=== PATIENT | female | born 1945 | race Caucasian/White ===

== ENCOUNTER 2023-01-28 08:30 | Emergency (ER) | payer MEDICARE, OTHER, MEDICAID, SELFPAY ==
--- NOTE | ~2023-01-28 | XR_ITS ---
EXAMINATION: XR CHEST CLINICAL INFORMATION: SOB COMPARISON: None available. TECHNIQUE: Frontal view of the chest was obtained. Patient is rotated to the left FINDINGS: The lungs are somewhat expanded with left lower lobe lateral CP angle opacity question loculated effusion/infiltrate/atelectasis. Heart size is normal. There is increased pulmonary vascularity suggestive of CHF. No visible bony abnormality seen. XR/XR chest 1V IMPRESSION: 1. Left lower lobe lateral CP angle opacity question loculated effusion/atelectasis/infiltrate. 2. Suspect mild CHF.
--- NOTE | ~2023-01-28 | CT_ITS ---
EXAMINATION: CT HEAD WITHOUT CONTRAST CLINICAL INFORMATION: Mental status change COMPARISON: None available. TECHNIQUE: Contiguous axial imaging was performed from the skull base to vertex without intravenous administration of contrast. This CT examination was performed using dose optimization techniques as appropriate, variously including the following: *Automated exposure control *Adjustment of mA and/or kV according to patient size (this includes techniques or standardized protocols for targeted exams where dose is matched to indication/reason for exam; i.e. extremities or head) *Use of iterative reconstruction technique DLP: 592 mGy-cm FINDINGS: No intracranial hemorrhage is identified. No significant mass effect or midline structure shift is seen. No abnormal extra-axial fluid collection is seen. There is prominence of ventricles, sulci, and cisterns. There is some mild periventricular white matter low density present. About the lower right frontal region, inferior gyrus, there is a 1.6 x 1.0 x 1.4 cm low-density region with a 5 mm bony defect seen about the right superior orbit. This has the appearance of encephalomalacia and may be posttraumatic in nature or possibly related to infarct. The bony defect may be posttraumatic or related to another process and MRI of the orbits would be of help in further evaluation of this finding. There is material within the right external auditory canal without evidence of erosion of the scutum and therefore not likely cholesteatoma. It does however have density measurements greater than cerumen would be expected to this may be related to impacted material. Pterygoid plates intact. No acute skull fracture is appreciated. There is opacification of the left mastoid sinus with a prominent inferior left turbinate. There is opacification of some right mastoid air cells. CT/CT head/brain wo IV con IMPRESSION: Generalized atrophic change. Region of encephalomalacia about the right inferior gyrus which is directly adjacent to a defect within the orbital roof. This may be posttraumatic in nature however lesion of other etiology cannot be excluded and MRI some of the orbits and IACs is recommended. There is no previous imaging of these regions at this institution.
[2023-01-28 08:39] VITALS: BP 112/55; PULSE 50; O2SAT 100
[2023-01-28 08:41] VITALS: BP 122/47; PULSE 53; RESP 20; TEMP 36.4; O2SAT 100; BMI 23.5
--- NOTE | 2023-01-28 08:43 | ED.AMS ---
HPI - Altered Mental Status General Chief Complaint: Altered Mental Status Stated Complaint: From SNF, AMS, responsive to pain only per EMS Time Seen by Provider: 01/28/23 08:36 Source: EMS Mode of arrival: EMS Limitations: altered mental status History of Present Illness HPI narrative: This 77 yo female from [place] sent for eval because more lethargic. 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 No reported fever/vomiting/diarrhea last dyalisis Yesterday complaint: altered mental status Onset (ago): unknown Severity: moderate Consistency of symptoms: waxing and waning Context: COPD and other (CRF) Related Data Allergies Allergy/AdvReac Type Severity Reaction Status Date / Time haloperidol [From Haldol] Allergy Unknown Verified 01/28/23 08:43 lithium Allergy Unknown Verified 01/28/23 08:43 Review of Systems Review of Systems: Yes Unobtainable due to mental status PMFSH Social History Social History Advance Directives: No Physical Exam ED Vital Signs: Vital Signs - 24 hr 01/28/23 08:41 01/28/23 12:00 Temperature 97.5 F 98.0 F Pulse Rate 53 50 Respiratory Rate 20 12 Blood Pressure 122/47 L 112/41 L Pulse Oximetry 100 97 Oxygen Delivery Method Nasal Cannula Nasal Cannula Oxygen Flow Rate 3 BMI result Body Mass Index 23.5 Const General: cooperative, no acute distress and well developed Nutritional Appearance: well nourished Orientation/consciousness: patient oriented x3 HENMT Head: Yes normal to inspection Face and sinus: Yes normal facial exam Mouth: Normal oral and palatal mucosa present Throat: Yes posterior oropharynx normal Neck Neck: Yes normal visual inspection Chest Chest palpation & inspection: normal inspection of the chest Resp Effort & Inspection: normal respiratory effort Cardio Jugular venous distension: no JVD Rate: regular rate Rhythm: regular rhythm GI Inspection: Yes normal to inspection Palpation (GI): Soft to palpation, not firm, nontender and no guarding Percussion: Yes normal to percussion Skin General skin exam: no rashes or lesions noted, elasticity normal and turgor normal Neuro General: patient oriented x3 Cranial nerves: Yes CN's II-XII intact bilaterally Extrem Other: legs edema bilaterally Course Course Course Narrative: Patient remains stable in the emergency department she was awake alert oriented, she ate lunch vital sign was stable Reevaluation(s) Reevaluation #1: eating lunch,delta tropi flat VSS Time: 14:18 Medications Administered Discontinued Medications Generic Name Dose Route Start Last Admin Trade Name Tc PRN Reason Stop Dose Admin Furosemide 60 mg 01/28/23 14:39 01/28/23 14:53 Furosemide 40 Mg Tablet PO 01/28/23 14:40 60 mg ONCE ONE Administration Protocol Medical Decision Making Medical Decision Making MDM Narrative: Presented with mental status changes from [place] will get lab/UA/EKG head ct Differential Diagnosis Differential Diagnoses: The differential diagnosis associated with the presentation includes hyponatremia/hypernatremia/CVA/UTI Admission/Observation Consideration of admission/observation: Escalation of care including admission/observation considered Lab Data [facility] Lab Attestation statement: I reviewed the patient's lab results. 01/28/23 09:22 01/28/23 09:22 Labs: Lab Results 01/28/23 01/28/23 01/28/23 Range/Units 09:22 09:22 09:22 WBC 4.5 L (4.8-10.8) X10*3/uL RBC 2.84 L (4.20-5.50) X10*6/uL Hgb 8.4 L (12.0-16.0) g/dl Hct 28.3 L (37.0-47.0) % MCV 99.6 H (80.0-98.0) fL MCH 29.6 (27.0-33.0) pg MCHC 29.7 L (31.0-35.0) g/dl RDW 15.8 (11.0-16.0) % Plt Count 131 L (160-400) X10*3/uL MPV 11.5 (9.4-12.3) fL Immature Gran % (Auto) 0.4 (0.0-0.4) % Neut % (Auto) 67.2 (45-73) % Lymph % (Auto) 18.1 L (20-40) % [place] % (Auto) 12.6 H (2-11) % Eos % (Auto) 1.5 (0-4) % Baso % (Auto) 0.2 (0-2) % Lymph # (Auto) 0.8 L (1.2-4.9) X10*3/uL [place] # (Auto) 0.6 (0.1-1.2) X10*3/uL Eos # (Auto) 0.1 (0.0-0.4) X10*3/uL Baso # (Auto) 0.0 (0.0-0.2) X10*3/uL Abs Immat Gran (auto) 0.02 (0.00-0.03) X10*3/uL Absolute Neuts (auto) 3.1 (2.0-8.3) x10*3/uL Absolute Nucleated RBC 0.000 (0.0-0.012) X10*3/uL Nucleated RBC % (auto) 0.0 (0.0-0.2) /100WBC O2 Saturation % ABG pH at Pt Temp (7.35-7.45) ABG pCO2 at Pt Temp (32-45) mmHg ABG pO2 at Pt Temp (83-108) mmHg ABG HCO3 (22-26) mmol/L ABG Base Excess (Actual) mmol/L Sodium 141 (135-145) mmol/L Potassium 4.7 (3.3-5.1) mmol/L Chloride 104 (96-108) mmol/L Carbon Dioxide 30 H (22-29) mmol/L Anion Gap 12 (12-20) BUN 25 H (9-16) mg/dL Creatinine 3.05 H (0.5-1.4) mg/dL Estim Creat Clear Calc 11.6 Estimated GFR 15 Random Glucose 76 (60-115) mg/dL Calcium 8.8 (8.4-10.2) mg/dL Total Bilirubin 0.4 (0.0-1.0) mg/dL AST 20 (5-31) U/L ALT 12 (0-31) U/L Alkaline Phosphatase 89 (39-117) U/L Troponin I High Sens 28.1 H (<3.5-17.0) ng/L Total Protein 5.7 L (6.5-8.0) g/dL Albumin 3.5 (3.5-5.0) g/dL Urine Color Urine Appearance Urine pH (5.0-9.0) Ur Specific [place] (1.005-1.025) Urine Protein (Neg-Trace) mg/dL Urine Glucose (UA) (Negative) mg/dL Urine Ketones (Negative) mg/dL Urine Blood (Negative) Urine Nitrite (Negative) Ur Leukocyte Esterase (Negative) Urine RBC (0-2) /HPF Urine WBC (0-5) /HPF Ur Squamous Epith Cells (0-2) /HPF Urine Bacteria (None Seen) Hyaline Casts (0-2) /LPF 01/28/23 01/28/23 01/28/23 Range/Units 10:03 10:53 13:24 WBC (4.8-10.8) X10*3/uL RBC (4.20-5.50) X10*6/uL Hgb (12.0-16.0) g/dl Hct (37.0-47.0) % MCV (80.0-98.0) fL MCH (27.0-33.0) pg MCHC (31.0-35.0) g/dl RDW (11.0-16.0) % Plt Count (160-400) X10*3/uL MPV (9.4-12.3) fL Immature Gran % (Auto) (0.0-0.4) % Neut % (Auto) (45-73) % Lymph % (Auto) (20-40) % [place] % (Auto) (2-11) % Eos % (Auto) (0-4) % Baso % (Auto) (0-2) % Lymph # (Auto) (1.2-4.9) X10*3/uL [place] # (Auto) (0.1-1.2) X10*3/uL Eos # (Auto) (0.0-0.4) X10*3/uL Baso # (Auto) (0.0-0.2) X10*3/uL Abs Immat Gran (auto) (0.00-0.03) X10*3/uL Absolute Neuts (auto) (2.0-8.3) x10*3/uL Absolute Nucleated RBC (0.0-0.012) X10*3/uL Nucleated RBC % (auto) (0.0-0.2) /100WBC O2 Saturation 100.0 % ABG pH at Pt Temp 7.34 L (7.35-7.45) ABG pCO2 at Pt Temp 55 H (32-45) mmHg ABG pO2 at Pt Temp 126 H (83-108) mmHg ABG HCO3 30 H (22-26) mmol/L ABG Base Excess (Actual) 3.9 mmol/L Sodium (135-145) mmol/L Potassium (3.3-5.1) mmol/L Chloride (96-108) mmol/L Carbon Dioxide (22-29) mmol/L Anion Gap (12-20) BUN (9-16) mg/dL Creatinine (0.5-1.4) mg/dL Estim Creat Clear Calc Estimated GFR Random Glucose (60-115) mg/dL Calcium (8.4-10.2) mg/dL Total Bilirubin (0.0-1.0) mg/dL AST (5-31) U/L ALT (0-31) U/L Alkaline Phosphatase (39-117) U/L Troponin I High Sens 22.0 H (<3.5-17.0) ng/L Total Protein (6.5-8.0) g/dL Albumin (3.5-5.0) g/dL Urine Color Yellow Urine Appearance Clear Urine pH 8.5 (5.0-9.0) Ur Specific [place] <= 1.005 (1.005-1.025) Urine Protein 30 (1+) H (Neg-Trace) mg/dL Urine Glucose (UA) Negative (Negative) mg/dL Urine Ketones Negative (Negative) mg/dL Urine Blood Negative (Negative) Urine Nitrite Negative (Negative) Ur Leukocyte Esterase Negative (Negative) Urine RBC 0-2 (0-2) /HPF Urine WBC 0-5 (0-5) /HPF Ur Squamous Epith Cells 0-2 (0-2) /HPF Urine Bacteria None Seen (None Seen) Hyaline Casts 0-2 (0-2) /LPF Independent Interpretation I performed an independent interpretation of an: EKG Radiology Impression Discussion of test interpretation with radiology: I have reviewed the radiologist's reading. Independent Historian is finding. There is material within the right external auditory canal without evidence of erosion of the scutum and therefore not likely cholesteatoma. It does however have density measurements greater than cerumen would be expected to this may be related to impacted material. Pterygoid plates intact. No acute skull fracture is appreciated. There is opacification of the left mastoid sinus with a prominent inferior left turbinate. There is opacification of some right mastoid air cells. ? CT/CT head/brain wo IV con IMPRESSION: Generalized atrophic change. ? Region of encephalomalacia about the right inferior gyrus which is directly adjacent to a defect within the orbital roof. This may be posttraumatic in nature however lesion of other etiology cannot be excluded and MRI some of the orbits and IACs is recommended. There is no previous imaging of these regions at this institution. Dictated By: Rafael Fonseca MD Signed By: <Electronically si External Record Review External record reviewed: Other ([facility] record) Discharge Plan Discharge Clinical Impression: Altered mental status, Chronic renal failure syndrome Patient Disposition: Xfer SNF Instructions: Altered Mental Status (ED)
--- NOTE | 2023-01-28 08:48 | ECG_ITS ---
Test Reason : AMS Blood Pressure : / mmHG Vent. Rate : 053 BPM Atrial Rate : 053 BPM P-R Int : 154 ms QRS Dur : 082 ms QT Int : 424 ms P-R-T Axes : 066 006 056 degrees QTc Int : 397 ms Sinus bradycardia Otherwise normal ECG No previous ECGs available Referred By: Delta Noyola Electronically Signed By:JOHN FLANAGAN MD
[2023-01-28 08:58] VITALS: O2SAT 94
[2023-01-28 09:26] LABS: MANUAL DIFF FLAG NO
[2023-01-28 09:29] LABS: Basophils Percent Auto 0.2 % (0-2); Eosinophils Absolute Auto 0.1 X10*3/uL (0.0-0.4); Eosinophils Percent Auto 1.5 % (0-4); Hematocrit 28.3 % (37.0-47.0); Hemoglobin 8.4 g/dl (12.0-16.0); Imm Gran Abs Auto 0.02 X10*3/uL (0.00-0.03); Imm Gran Pct Auto 0.4 % (0.0-0.4); Lymphocytes Absolute Auto 0.8 X10*3/uL (1.2-4.9); Lymphocytes Percent Auto 18.1 % (20-40); Mean Corpuscular HGB Conc 29.7 g/dl (31.0-35.0); Mean Corpuscular Hemoglobin 29.6 pg (27.0-33.0); Mean Corpuscular Volume 99.6 fL (80.0-98.0); Mean Platelet Volume 11.5 fL (9.4-12.3); Monocytes Absolute Auto 0.6 X10*3/uL (0.1-1.2); Monocytes Percent Auto 12.6 % (2-11); Neutrophils Absolute Auto 3.1 x10*3/uL (2.0-8.3); Neutrophils Percent Auto 67.2 % (45-73); Platelet Count 131 X10*3/uL (160-400); Red Blood Count 2.84 X10*6/uL (4.20-5.50); Red Cell Distribution Width 15.8 % (11.0-16.0); White Blood Count 4.5 X10*3/uL (4.8-10.8)
[2023-01-28 09:48] LABS: Alanine Aminotransferase 12 U/L (0-31); Albumin Level 3.5 g/dL (3.5-5.0); Alkaline Phosphatase 89 U/L (39-117); Anion Gap 12 (12-20); Aspartate Amino Transferase 20 U/L (5-31); Bilirubin Total 0.4 mg/dL (0.0-1.0); Blood Urea Nitrogen 25 mg/dL (9-16); Calcium 8.8 mg/dL (8.4-10.2); Carbon Dioxide 30 mmol/L (22-29); Chloride 104 mmol/L (96-108); Creatinine Clr Calc Pharmacy 11.6; Estimated Glomerular Filt Rate 15; Glucose Random 76 mg/dL (60-115); Potassium 4.7 mmol/L (3.3-5.1); Sodium 141 mmol/L (135-145); Total Protein 5.7 g/dL (6.5-8.0)
[2023-01-28 09:56] LABS: Troponin-I High Sensitivity 28.1 ng/L (<3.5-17.0)
[2023-01-28 10:11] LABS: ABG Base Excess 3.9 mmol/L; ABG HCO3 30 mmol/L (22-26); ABG pCO2 55 mmHg (32-45); ABG pH 7.34 (7.35-7.45); ABG pO2 126 mmHg (83-108)
[2023-01-28 10:47] LABS: ABG Refer to POC result
[2023-01-28 11:10] LABS: Color Urine Yellow; Glucose Urine UA Negative (Negative); Leukocyte Esterase Urine Negative (Negative); Nitrite Urine Negative (Negative); PH 8.5 (5.0-9.0); Specific Gravity - Urine <= 1.005 (1.005-1.025); UMIC TRIGGER UACC YES; Urine Blood Negative (Negative); Urine Ketones Negative (Negative); Urine Protein 30 (1+) mg/dL (Neg-Trace)
[2023-01-28 11:11] LABS: Appearance Urine Clear
[2023-01-28 11:12] LABS: Bacteria Urine None Seen (None Seen); Hyaline Casts Urine 0-2 /LPF (0-2); RBC Urine 0-2 /HPF (0-2); Squamous Epithelial Cell Urine 0-2 /HPF (0-2); WBC Urine 0-5 /HPF (0-5)
[2023-01-28 12:00] VITALS: BP 112/41; PULSE 50; RESP 12; TEMP 36.7; O2SAT 97
[2023-01-28] MEDS: Furosemide 40 MG TABLET 60 MG PO (14:53)
[2023-01-28 19:14] VITALS: BP 108/59; PULSE 81; RESP 17; O2SAT 97
== END 2023-01-28 19:15 | disposition skilled nursing facility (03) ==
PROVIDERS: Emergency Provider Emergency Medicine; PCP Internal Medicine
DX: R41.82 Altered mental status, unspecified (principal); N18.6 End stage renal disease; Z99.2 Dependence on renal dialysis
CPT/HCPCS: 36415; 70450; 71045; 80053; 81001; 82803; 84484; 85025; 93005; 96374; 99284

== ENCOUNTER 2023-04-05 10:04 | Inpatient (IN) | payer MEDICARE, OTHER, MEDICAID, SELFPAY ==
[2023-04-05] VITALS (26 sets, daily range): BP systolic 64–180; BP diastolic 32–91; PULSE 40–97; RESP 11–27; TEMP 34.7–36.1; O2SAT 90–100; BMI 25.8
--- NOTE | ~2023-04-05 | XR_ITS ---
EXAMINATION: XR CHEST CLINICAL INFORMATION: Status post central line COMPARISON: AP semierect portable chest earlier today TECHNIQUE: AP portable upright view of the chest was obtained. 1330 hours FINDINGS: Interval placement of a right IJ central line with the tip in the right atrium. No pneumothorax. No other significant interval change.. The left upper lobe, now visualized, is clear. XR/XR chest 1V IMPRESSION: Interval placement of a right central line with the tip in the right atrium.
--- NOTE | ~2023-04-05 | CT_ITS ---
EXAMINATION: CT HEAD WITHOUT CONTRAST CLINICAL INFORMATION: Acute mental status change COMPARISON: Previous head CT January 2023 TECHNIQUE: Contiguous axial imaging was performed from the skull base to vertex without intravenous administration of contrast. This CT examination was performed using dose optimization techniques as appropriate, variously including the following: *Automated exposure control *Adjustment of mA and/or kV according to patient size (this includes techniques or standardized protocols for targeted exams where dose is matched to indication/reason for exam; i.e. extremities or head) *Use of iterative reconstruction technique DLP: 675 mGy-cm FINDINGS: There is no evidence of an extra-axial collection. There is no evidence of intra-axial or extra-axial hemorrhage. The ventricles and extra-axial CSF spaces are prominent suggestive of generalized atrophy. There is decreased attenuation suggestive of gliosis or encephalomalacia seen in the inferior right frontal lobe. This is adjacent to bony defect in the roof of the right orbit. This appears unchanged from previous exam January 2023. No mass, mass effect or acute infarct. Rosario-white matter differentiation is normal. Soft tissue opacification of the right mastoid air cells, stable. Soft tissue opacification of the left maxillary sinus and ostiomeatal complex. This appears increased from previous exam. CT/CT head/brain wo IV con IMPRESSION: No acute intracranial findings. Generalized atrophy. Encephalomalacia in the inferior right frontal lobe and adjacent bone defect in the superior right orbit. Appearance is unchanged from January 2023. Post traumatic change should be considered. Infectious or inflammatory or neoplastic process cannot be excluded and clinical correlation recommended. This again could be better evaluated with MR of the orbits. Worsening left maxillary sinus disease. Stable opacification of the right mastoid air cells.
--- NOTE | ~2023-04-05 | CT_ITS ---
EXAMINATION: CT CHEST, ABDOMEN AND PELVIS WITH CONTRAST CLINICAL INFORMATION: sepsis unclear etiology COMPARISON: Chest radiograph earlier today TECHNIQUE: Multidetector volumetric imaging was performed from the thoracic inlet through the pubic symphysis following administration of 85 mL Omnipaque 350. Sagittal and coronal reformatted images were obtained on the technologist's workstation. This CT examination was performed using dose optimization techniques as appropriate, variously including the following: *Automated exposure control *Adjustment of mA and/or kV according to patient size (this includes techniques or standardized protocols for targeted exams where dose is matched to indication/reason for exam; i.e. extremities or head) *Use of iterative reconstruction technique DLP: 201 mGy-cm FINDINGS: CHEST: Lungs and Pleura: Bibasilar atelectasis and small/trace pleural effusions are present. No suspicious lung masses or consolidations are seen. Mediastinum: The thyroid is enlarged and nodular with calcifications as well. Findings consistent with a multinodular goiter. No follow-up should be necessary.. The central vascular structures are unremarkable. No hilar or mediastinal lymphadenopathy. No pericardial effusion. Moderate coronary calcium is seen. Right IJ line has its tip at the SVC/RA junction. Chest Wall/Axilla: Unremarkable ABDOMEN/PELVIS: Peritoneal Space: No significant free air or free fluid identified. Liver, Gallbladder, Biliary Tree: The liver is normal in size, shape, and attenuation. No focal hepatic lesion or biliary ductal dilatation is present. There is a single large 1 cm calculus present in the gallbladder without evidence of cholecystitis. Pancreas: Unremarkable Spleen: Unremarkable Adrenal Glands: Unremarkable Kidneys and Ureters: Both kidneys are slightly small with cortical thinning and bilateral benign Bosniak class I cysts which need no additional imaging or follow-up. No suspicious solid renal masses. No hydronephrosis, hydroureter, or calculi seen. No perinephric stranding. Bladder: Bauer catheter is present in the bladder which is empty. Gastrointestinal Tract: Extensive diverticular changes are present in the sigmoid colon with scattered diverticula elsewhere. No evidence of acute diverticulitis The small and large bowel are otherwise unremarkable. The appendix is unremarkable. Abdominal Wall: No significant hernia is appreciated. Lymph Nodes: No lymphadenopathy. Vascular: Calcific plaque present in the aorta and iliofemoral vessels without aneurysm.. The IVC appears unremarkable. PELVIC VISCERA: Uterus is not seen. Small amount of free pelvic fluid is present. OSSEUS STRUCTURES: There is a marked thoracic kyphosis. Generalized osteopenia is present. Compression fractures are seen in the midthoracic spine along with marked compression fractures involving L3 and L4 with near vertebra plana. CT/CT abdomen pelvis w IV con IMPRESSION: A cause for the patient's sepsis has not been found. Incidental note made of: 1. Enlarged nodular thyroid goiter. 2. Cholelithiasis without cholecystitis. 3. Small kidneys with cortical thinning and benign cysts. 4. Extensive colonic diverticulosis without diverticulitis. 5. Small amount of free pelvic fluid. 6. Thoracic kyphosis with compression fractures as described above. Fleischner guidelines were followed.
--- NOTE | ~2023-04-05 | XR_ITS ---
EXAMINATION: XR CHEST CLINICAL INFORMATION: AMS COMPARISON: Portable chest 01/28/2023 TECHNIQUE: Frontal view of the chest was obtained. The patient is unable to relax head out of the imaging field. FINDINGS: The patient is rotated to the left with his head obscuring the left upper lobe. Opacities at the lung bases are most suggestive of atelectasis rather than pneumonia. Heart size is normal. Opacity in the left costophrenic angle may be due to loculated effusion/infiltrate/atelectasis. This is similar to the prior study. There is mild increase in interstitial markings possibly due to mild CHF. Vascular stent is seen in the left upper arm. Surgical clips are are seen in the region of the left upper arm. No acute osseous abnormality. XR/XR chest 1V IMPRESSION: 1. Left lower lobe lateral CP angle opacity, question loculated effusion/atelectasis is/infiltrate. 2. Suspected mild CHF
--- NOTE | 2023-04-05 10:17 | ECG_ITS ---
Test Reason : SHILOH CARDIA Blood Pressure : / mmHG Vent. Rate : 048 BPM Atrial Rate : 048 BPM P-R Int : 170 ms QRS Dur : 100 ms QT Int : 456 ms P-R-T Axes : 068 032 063 degrees QTc Int : 407 ms Sinus bradycardia Otherwise normal ECG When compared with ECG of 28-JAN-2023 08:59, No significant change was found Referred By: Pravin Rosales Electronically Signed By:MYLA MONIQUE
--- NOTE | 2023-04-05 10:17 | ED_ITS ---
HPI - Altered Mental Status General Chief Complaint: Altered Mental Status Stated Complaint: LOW HR 50BPM,AMS PER SNF PER EMS Time Seen by Provider: 04/05/23 10:09 Source: patient and EMS Mode of arrival: EMS Limitations: altered mental status History of Present Illness HPI narrative: 77 year old female with history of diabetes, COPD, ESRD on T//S dialysis, presenting today via EMS from her longterm after staff noticed a change in mental status upon waking this morning. History limited due to patient's le thargy. Per EMS, nursing staff states that the patient is at her baseline however has been very lethargic since waking this morning. Upon EMS arrival the patient was noted to be bradycardic at 50bpm. Patient placed on 2L of O2 en route. Not on home O2. She was due for dialysis at 1600 today however this has been canceled. Related Data Home Medications Medication Instructions Recorded Confirmed acetaminophen 325 mg tablet 650 mg PO Q4H PRN Pain 04/05/23 04/05/23 albuterol sulfate 90 mcg/actuation 2 puff inhalation Q6H PRN 04/05/23 04/05/23 aerosol inhaler Shortness Of Breath aspirin 81 mg tablet,delayed 81 mg PO DAILY 04/05/23 04/05/23 release atorvastatin 40 mg tablet 40 mg PO BEDTIME 04/05/23 04/05/23 azelastine 137 mcg (0.1 %) nasal 1 spray intranasal BID 04/05/23 04/05/23 spray aerosol cetirizine 10 mg tablet 10 mg PO DAILY 04/05/23 04/05/23 docusate sodium 100 mg capsule 100 mg PO DAILY PRN Constipation 04/05/23 04/05/23 fluphenazine HCl 2.5 mg tablet 7.5 mg PO DAILY 04/05/23 04/05/23 furosemide 80 mg tablet 80 mg PO MOWEFRSA 04/05/23 04/05/23 gabapentin 100 mg capsule 100 mg PO BID 04/05/23 04/05/23 ipratropium 0.5 mg-albuterol 3 mg 3 ml inhalation Q4H PRN Wheezing 04/05/23 04/05/23 (2.5 mg base)/3 mL nebulization soln isosorbide mononitrate 30 mg 30 mg PO DAILY 04/05/23 04/05/23 tablet,extended release 24 hr lactulose 10 gram/15 mL oral 30 ml PO DAILY PRN Constipation 04/05/23 04/05/23 solution melatonin 3 mg tablet 3 mg PO BEDTIME 04/05/23 04/05/23 methimazole 5 mg tablet 5 mg PO DAILY 04/05/23 04/05/23 midodrine 10 mg tablet 10 mg PO TID PRN Hypotension 04/05/23 04/05/23 multivitamin 1 tab PO DAILY 04/05/23 04/05/23 olanzapine 2.5 mg tablet 12.5 mg PO BEDTIME 04/05/23 04/05/23 oxycodone-acetaminophen 5 mg-325 1 tab PO Q4H PRN Pain 04/05/23 04/05/23 mg tablet pantoprazole 20 mg tablet,delayed 20 mg PO DAILY 04/05/23 04/05/23 release sennosides 8.6 mg tablet (senna) 8.6 mg PO DAILY 04/05/23 04/05/23 sevelamer HCl 800 mg tablet 2,400 mg PO TIDWM 04/05/23 04/05/23 Allergies Allergy/AdvReac Type Severity Reaction Status Date / Time haloperidol [From Haldol] Allergy Unknown Verified 01/28/23 08:43 lithium Allergy Unknown Verified 01/28/23 08:43 Review of Systems Review of Systems: Yes Unobtainable due to mental status PMFSH Past Medical History Source: nursing notes reviewed Social History Social History Advance Directives: Yes Advance Directives Information Provided: No Advance Directives on File: No Physical Exam ED Vital Signs: Vital Signs - 24 hr 04/05/23 10:22 04/05/23 12:08 04/05/23 12:33 Temperature 94.5 F L 94.5 F L Pulse Rate 51 45 L 46 L Respiratory Rate 13 11 L 13 Blood Pressure 136/56 L 141/53 H 105/43 L Pulse Oximetry 93 100 98 Oxygen Delivery Method Room Air Nasal Cannula Nasal Cannula Oxygen Flow Rate 2 2 04/05/23 12:53 04/05/23 13:33 04/05/23 14:06 Temperature 94.5 F L 95 F L Pulse Rate 46 L 49 L 52 Respiratory Rate 14 13 14 Blood Pressure 105/43 L 121/49 L Pulse Oximetry 98 98 Oxygen Delivery Method Nasal Cannula Nasal Cannula Oxygen Flow Rate 2 2 04/05/23 14:30 04/05/23 15:05 04/05/23 15:51 Temperature 96.3 F L 96.4 F L Pulse Rate 40 L 68 75 Respiratory Rate 15 13 Blood Pressure 112/37 L 93/32 L 97/37 L Pulse Oximetry 99 99 Oxygen Delivery Method Aerosol Mask Aerosol Mask Oxygen Flow Rate 5 5 BMI result Body Mass Index 25.8 GEN: Well developed, alert but lethargic, minimally participating in answering questions, oriented x2 HEENT: Normocephalic, atraumatic, normal external ears, nose appears normal Eyes: Normal to appearance Neck: Supple Respiratory: No respiratory distress, clear to auscultation anteriorly bilaterally Cardiovascular: Bradycardic with regular rhythm, no murmurs rubs or gallops Abdomen: Soft, nontender, nondistended, no guarding, no rebound Extremities: Bilateral non pitting edema, No clubbing, cyanosis Neurologic: No focal neurologic deficits, strength is 5/5 bilaterally Skin: No rash Course Reevaluation(s) Reevaluation #1: Sepsis now suspected. Sepsis alert called and 1g of cetriaxone will be initiated at this time. 30cc bolus will be held at this time as patient is on dialysis. Septic shock unlikely as patient is not hypotensive, lactate results are pending. Time: 12:34 Reevaluation #2: K is 6.6 line blew, [id number] albuterol and lokelma Time: 12:46 Reevaluation #3: Patient is a poor access for peripheral line. I attempted to talk with the patient but she is unable to regularly communicate in an intelligible way. I attempted to contact her patient's sister Diamante Belle at [phone]. However, I was unable to reach her. At this time, given the likelihood of severe sepsis possible pulmonary infection, will place a central line. Unable to get consent at this time from patient or family member. This is potentially an emergent issue I believe it is appropriate to place an IV at this time. Time: 12:55 Additional Reevaluation(s): 1500: on reevaluation, patients MAP is 60. Will administer 1/2 liter IVF and albumin. At this time, the patient is fluid overloaded so will hold the 30cc of IVF at this time. 1510: patient MAP is now at 55. Blood pressure continues to drop. Starting levophed. 15 30: Email Producer bedside. He is requesting CT of the abdomen chest and pelvis. That has been ordered. I have also ordered COVID influenza swab. Will review to see if patient would benefit from some albumin administration. Medications Administered Generic Name Dose Route Start Last Admin Trade Name Freq PRN Reason Stop Dose Admin Norepinephrine Bitartrate 8 mg in 250 mls @ 0 mls/hr 04/05/23 15:15 04/05/23 15:51 Levophed IV 0.05 mcg/kg/min .Q0M AXEL 5.42 mls/hr Administration Protocol Per Protocol Discontinued Medications Generic Name Dose Route Start Last Admin Trade Name Freq PRN Reason Stop Dose Admin Albuterol Sulfate 10 mg 04/05/23 12:44 04/05/23 14:00 Albuterol Sulfate (0.083%) 2.5 Mg/3 Ml Vial.Neb INHALE 04/05/23 12:45 10 mg ONCE ONE Administration Dextrose 25 gm 04/05/23 14:05 04/05/23 14:46 Dextrose 50 % 25 Gm/50 Ml Syringe IVPUSH 04/05/23 14:06 25 gm ONCE ONE Administration Ceftriaxone Sodium 1 gm/ 50 mls @ 100 mls/hr 04/05/23 12:33 04/05/23 12:37 Sodium Chloride IV 04/05/23 13:02 100 mls/hr ONCE ONE Administration Azithromycin 500 mg/ Sodium 250 mls @ 125 mls/hr 04/05/23 12:49 04/05/23 14:46 Chloride IV 04/05/23 14:48 125 mls/hr ONCE ONE Administration Calcium Gluconate 1 gm in 50 mls @ 50 mls/hr 04/05/23 14:21 04/05/23 14:52 Calcium Gluconate IV 04/05/23 15:20 50 mls/hr ONCE ONE Administration Insulin Human Regular 10 unit 04/05/23 14:05 04/05/23 14:44 Insulin Regular, Human 100 Unit/Ml 3 Ml Vial IVPUSH 04/05/23 14:06 10 unit ONCE ONE Administration Sodium Bicarbonate 50 meq 04/05/23 14:05 04/05/23 14:45 Sodium Bicarbonate 8.4% 50 Meq/50 Ml Syringe IVPUSH 04/05/23 14:06 50 meq ONCE ONE Administration Sodium Zirconium Cyclosilicate 10 gm 04/05/23 12:44 04/05/23 14:46 Sodium Zirconium Cyclosilicate 10 Gm Powd.Pack PO 04/05/23 12:45 Not Given ONCE ONE Medical Decision Making Medical Decision Making [facility] Narrative: 77 year old female with history of diabetes, COPD, ESRD on T//S dialysis, presenting today via EMS from her longterm after staff noticed a change in mental status upon waking this morning. History limited due to patient's jeffrey rgy. Patient noted to be bradycardic in the 50's with decreasing O2 sat requiring 2L of O2 en route. Vital signs on arrival to the ED notable for bradycardia at 51 bpm. Concern for cardiac arrythmia, electrolyte derangement, heart block, acute on chronic CKD Plan includes EKG, CXR, CT head, ammonia levels, CBC, CMP, lactate, and re eval Differential Diagnosis Differential Diagnoses: The differential diagnosis associated with the pre sentation includes see above Admission/Observation Consideration of admission/observation: Escalation of care including admiss ion/observation considered Consult Healthcare Provider Management of the patient was discussed with: Hospitalist Lab Data [facility] Lab Attestation statement: I reviewed the patient's lab results. 04/05/23 11:52 04/05/23 11:52 Labs: Lab Results 04/05/23 04/05/23 04/05/23 Range/Units 11:52 11:52 11:52 WBC (4.8-10.8) X10*3/uL RBC (4.20-5.50) X10*6/uL Hgb (12.0-16.0) g/dl Hct (37.0-47.0) % MCV (80.0-98.0) fL MCH (27.0-33.0) pg MCHC (31.0-35.0) g/dl RDW (11.0-16.0) % Plt Count (160-400) X10*3/uL MPV (9.4-12.3) fL Immature Gran % (Auto) (0.0-0.4) % Neut % (Auto) (45-73) % Lymph % (Auto) (20-40) % [place] % (Auto) (2-11) % Eos % (Auto) (0-4) % Baso % (Auto) (0-2) % Lymph # (Auto) (1.2-4.9) X10*3/uL [place] # (Auto) (0.1-1.2) X10*3/uL Eos # (Auto) (0.0-0.4) X10*3/uL Baso # (Auto) (0.0-0.2) X10*3/uL Abs Immat Gran (auto) (0.00-0.03) X10*3/uL Absolute Neuts (auto) (2.0-8.3) x10*3/uL Absolute Nucleated RBC (0.0-0.012) X10*3/uL Nucleated RBC % (auto) (0.0-0.2) /100WBC VBG pH (7.32-7.43) VBG pCO2 mmHg VBG pO2 mmHg VBG HCO3 (22-26) mmol/L VBG O2 Saturation % VBG Base Excess mmol/L Sodium 139 (135-145) mmol/L Potassium 6.6 H* D (3.3-5.1) mmol/L Chloride 107 (96-108) mmol/L Carbon Dioxide 21 L (22-29) mmol/L Anion Gap 18 (12-20) BUN 73 H (9-16) mg/dL Creatinine 5.12 H* (0.5-1.4) mg/dL Estim Creat Clear Calc 7.1 Estimated GFR 8 Random Glucose 87 (60-115) mg/dL Lactic Acid 0.7 (0.5-2.0) mmol/L Calcium 9.6 D (8.4-10.2) mg/dL Total Bilirubin 0.4 (0.0-1.0) mg/dL AST 22 (5-31) U/L ALT 11 (0-31) U/L Alkaline Phosphatase 91 (39-117) U/L Ammonia (13-55) umol/L Total Protein 6.4 L (6.5-8.0) g/dL Albumin 3.7 (3.5-5.0) g/dL TSH 1.77 Cancelled (0.32-4.0) uIU/mL Urine Color Urine Appearance Urine pH (5.0-9.0) Ur Specific [place] (1.005-1.025) Urine Protein (Neg-Trace) mg/dL Urine Glucose (UA) (Negative) mg/dL Urine Ketones (Negative) mg/dL Urine Blood (Negative) Urine Nitrite (Negative) Ur Leukocyte Esterase (Negative) Urine RBC (0-2) /HPF Urine WBC (0-5) /HPF Ur Squamous Epith Cells (0-2) /HPF Urine Bacteria (None Seen) Hyaline Casts (0-2) /LPF 04/05/23 04/05/23 04/05/23 Range/Units 11:52 11:56 12:05 WBC (4.8-10.8) X10*3/uL RBC (4.20-5.50) X10*6/uL Hgb (12.0-16.0) g/dl Hct (37.0-47.0) % MCV (80.0-98.0) fL MCH (27.0-33.0) pg MCHC (31.0-35.0) g/dl RDW (11.0-16.0) % Plt Count (160-400) X10*3/uL MPV (9.4-12.3) fL Immature Gran % (Auto) (0.0-0.4) % Neut % (Auto) (45-73) % Lymph % (Auto) (20-40) % [place] % (Auto) (2-11) % Eos % (Auto) (0-4) % Baso % (Auto) (0-2) % Lymph # (Auto) (1.2-4.9) X10*3/uL [place] # (Auto) (0.1-1.2) X10*3/uL Eos # (Auto) (0.0-0.4) X10*3/uL Baso # (Auto) (0.0-0.2) X10*3/uL Abs Immat Gran (auto) (0.00-0.03) X10*3/uL Absolute Neuts (auto) (2.0-8.3) x10*3/uL Absolute Nucleated RBC (0.0-0.012) X10*3/uL Nucleated RBC % (auto) (0.0-0.2) /100WBC VBG pH 7.26 L (7.32-7.43) VBG pCO2 56 mmHg VBG pO2 149 mmHg VBG HCO3 25 (22-26) mmol/L VBG O2 Saturation 99.0 % VBG Base Excess -1.7 mmol/L Sodium (135-145) mmol/L Potassium (3.3-5.1) mmol/L Chloride (96-108) mmol/L Carbon Dioxide (22-29) mmol/L Anion Gap (12-20) BUN (9-16) mg/dL Creatinine (0.5-1.4) mg/dL Estim Creat Clear Calc Estimated GFR Random Glucose (60-115) mg/dL Lactic Acid (0.5-2.0) mmol/L Calcium (8.4-10.2) mg/dL Total Bilirubin (0.0-1.0) mg/dL AST (5-31) U/L ALT (0-31) U/L Alkaline Phosphatase (39-117) U/L Ammonia 38 (13-55) umol/L Total Protein (6.5-8.0) g/dL Albumin (3.5-5.0) g/dL TSH (0.32-4.0) uIU/mL Urine Color Yellow Urine Appearance Cloudy Urine pH 7.5 (5.0-9.0) Ur Specific [place] <= 1.005 (1.005-1.025) Urine Protein 30 (1+) H (Neg-Trace) mg/dL Urine Glucose (UA) Negative (Negative) mg/dL Urine Ketones Negative (Negative) mg/dL Urine Blood Negative (Negative) Urine Nitrite Negative (Negative) Ur Leukocyte Esterase Negative (Negative) Urine RBC 0-2 (0-2) /HPF Urine WBC 0-5 (0-5) /HPF Ur Squamous Epith Cells 0-2 (0-2) /HPF Urine Bacteria None Seen (None Seen) Hyaline Casts 0-2 (0-2) /LPF 04/05/23 Range/Units 12:21 WBC 5.0 (4.8-10.8) X10*3/uL RBC 3.40 L (4.20-5.50) X10*6/uL Hgb 10.7 L D (12.0-16.0) g/dl Hct 35.0 L D (37.0-47.0) % MCV 102.9 H (80.0-98.0) fL MCH 31.5 (27.0-33.0) pg MCHC 30.6 L (31.0-35.0) g/dl RDW 13.7 (11.0-16.0) % Plt Count 97 L D (160-400) X10*3/uL MPV 12.2 (9.4-12.3) fL Immature Gran % (Auto) 0.2 (0.0-0.4) % Neut % (Auto) 72.8 (45-73) % Lymph % (Auto) 16.0 L (20-40) % [place] % (Auto) 9.2 (2-11) % Eos % (Auto) 1.4 (0-4) % Baso % (Auto) 0.4 (0-2) % Lymph # (Auto) 0.8 L (1.2-4.9) X10*3/uL [place] # (Auto) 0.5 (0.1-1.2) X10*3/uL Eos # (Auto) 0.1 (0.0-0.4) X10*3/uL Baso # (Auto) 0.0 (0.0-0.2) X10*3/uL Abs Immat Gran (auto) 0.01 (0.00-0.03) X10*3/uL Absolute Neuts (auto) 3.7 (2.0-8.3) x10*3/uL Absolute Nucleated RBC 0.000 (0.0-0.012) X10*3/uL Nucleated RBC % (auto) 0.0 (0.0-0.2) /100WBC VBG pH (7.32-7.43) VBG pCO2 mmHg VBG pO2 mmHg VBG HCO3 (22-26) mmol/L VBG O2 Saturation % VBG Base Excess mmol/L Sodium (135-145) mmol/L Potassium (3.3-5.1) mmol/L Chloride (96-108) mmol/L Carbon Dioxide (22-29) mmol/L Anion Gap (12-20) BUN (9-16) mg/dL Creatinine (0.5-1.4) mg/dL Estim Creat Clear Calc Estimated GFR Random Glucose (60-115) mg/dL Lactic Acid (0.5-2.0) mmol/L Calcium (8.4-10.2) mg/dL Total Bilirubin (0.0-1.0) mg/dL AST (5-31) U/L ALT (0-31) U/L Alkaline Phosphatase (39-117) U/L Ammonia (13-55) umol/L Total Protein (6.5-8.0) g/dL Albumin (3.5-5.0) g/dL TSH (0.32-4.0) uIU/mL Urine Color Urine Appearance Urine pH (5.0-9.0) Ur Specific [place] (1.005-1.025) Urine Protein (Neg-Trace) mg/dL Urine Glucose (UA) (Negative) mg/dL Urine Ketones (Negative) mg/dL Urine Blood (Negative) Urine Nitrite (Negative) Ur Leukocyte Esterase (Negative) Urine RBC (0-2) /HPF Urine WBC (0-5) /HPF Ur Squamous Epith Cells (0-2) /HPF Urine Bacteria (None Seen) Hyaline Casts (0-2) /LPF Independent Interpretation I performed an independent interpretation of an: EKG (sinus bradycardia with a rate of 48bpm, normal QT, normal QRS, no ischemic changes) and CT Scan (head NAD) Radiology Impression Discussion of test interpretation with radiology: I have reviewed the radiologist's reading. Radiologist Impression: CT/CT head/brain wo IV con IMPRESSION: No acute intracranial findings. Generalized atrophy. Encephalomalacia in the inferior right frontal lobe and adjacent bone defect in the superior right orbit. Appearance is unchanged from January 2023. Post traumatic change should be considered. Infectious or inflammatory or neoplastic process cannot be excluded and clinical correlation recommended. This again could be better evaluated with MR of the orbits. Worsening left maxillary sinus disease. Stable opacification of the right mastoid air cells. Dictated By: Lucille Del Toro MD Signed By: <Electronically signed by Lucille Del Toro MD in OV> 04/05/23 1240 DD/ 1134 TD/TT:? Brand Attendant: ALEXANDER Independent Historian Clinical information obtained from an independent historian. History obtained from or confirmed by: EMS External Record Review External record reviewed: Outpatient record Prescription Management I considered prescription management with: Pain Medication and Antibiotic Chronic Conditions Patient?s care impacted by: Diabetes and Other (ESRD, COPD) Procedures Central Line Placement Right IJ: Time Out Performed: Yes Patient Placed on Monitor/Pulse Ox: Yes MD Prep: mask, gown and gloves Central Line Prep: Povidone-Iodine 1%, Chlorhexidine scrub and sterile drapes applied Local Anesthetic: lidocaine 1% Amount of anesthesia used (mL): 3 Ultrasound Used for Placement: Yes Central Line Lumen Inserted: triple Post Procedure: sutured in place, good blood return, all ports aspirated, flushed, capped and sterile dressing applied Post Procedure X-Ray: other (No pneumothorax, tip of the central line noted in the right atrium) Patient Tolerated Procedure: well and no complications Complications: none Critical Care Time Critical Care Time Critical Care Time: Yes Total Critical Care Time: 120 Attestation: Critical care time the amount of 120 minutes been provided to the patient in te bethany of direct patient care, frequent re-evaluation, consultation with Nephrology, Critical Care and hospitalist. Review of medical data, interpretation and medical data, management of potentially life-threatening condition including hypertension, severe sepsis, hypothermia. This is all outside of any medical procedures Discharge Plan Discharge Clinical Impression: Severe sepsis, ESRD (end stage renal disease) Patient Disposition: Admitted As Inpatient
--- NOTE | 2023-04-05 10:54 | PC.NURSE ---
PA attempting u/s guided IV.
--- NOTE | 2023-04-05 11:44 | PC.NURSE ---
Labs attempted, phlebotomy called for assistance. Bauer cath inserted and patent, + thrill to L arm fistula.
[2023-04-05 12:00] LABS: Venous Blood Gas Refer to POC result
[2023-04-05 12:04] LABS: VBG Base Excess -1.7 mmol/L; VBG HCO3 25 mmol/L (22-26); VBG pCO2 56 mmHg; VBG pH 7.26 (7.32-7.43); VBG pO2 149 mmHg
--- NOTE | 2023-04-05 12:18 | PHA.MEDREC ---
Pharmacy Consult ? Medication Reconciliation Pharmacy has completed the medication reconciliation.
[2023-04-05 12:29] LABS: Ammonia 38 umol/L (13-55)
[2023-04-05 12:30] LABS: Basophils Percent Auto 0.4 % (0-2); Eosinophils Absolute Auto 0.1 X10*3/uL (0.0-0.4); Eosinophils Percent Auto 1.4 % (0-4); Hemoglobin 10.7 g/dl (12.0-16.0); Imm Gran Abs Auto 0.01 X10*3/uL (0.00-0.03); Imm Gran Pct Auto 0.2 % (0.0-0.4); Lymphocytes Absolute Auto 0.8 X10*3/uL (1.2-4.9); Mean Corpuscular HGB Conc 30.6 g/dl (31.0-35.0); Mean Corpuscular Hemoglobin 31.5 pg (27.0-33.0); Mean Corpuscular Volume 102.9 fL (80.0-98.0); Mean Platelet Volume 12.2 fL (9.4-12.3); Monocytes Absolute Auto 0.5 X10*3/uL (0.1-1.2); Monocytes Percent Auto 9.2 % (2-11); Neutrophils Absolute Auto 3.7 x10*3/uL (2.0-8.3); Neutrophils Percent Auto 72.8 % (45-73); Red Cell Distribution Width 13.7 % (11.0-16.0)
[2023-04-05 12:33] LABS: Lactic Acid 0.7 mmol/L (0.5-2.0)
[2023-04-05] MEDS: cefTRIAXone sodium 1 GM in 0.9 % Sodium Chloride 50 ML IV (12:37)
[2023-04-05 12:45] LABS: Alanine Aminotransferase 11 U/L (0-31); Albumin Level 3.7 g/dL (3.5-5.0); Alkaline Phosphatase 91 U/L (39-117); Anion Gap 18 (12-20); Aspartate Amino Transferase 22 U/L (5-31); Bilirubin Total 0.4 mg/dL (0.0-1.0); Blood Urea Nitrogen 73 mg/dL (9-16); Calcium 9.6 mg/dL (8.4-10.2); Carbon Dioxide 21 mmol/L (22-29); Chloride 107 mmol/L (96-108); Creatinine Clr Calc Pharmacy 7.1; Estimated Glomerular Filt Rate 8; Glucose Random 87 mg/dL (60-115); Potassium 6.6 mmol/L (3.3-5.1); Sodium 139 mmol/L (135-145); TSH reflex Free T4 1.77 uIU/mL (0.32-4.0); Total Protein 6.4 g/dL (6.5-8.0)
--- NOTE | 2023-04-05 12:45 | PC.NURSE ---
Original IV placed via ultra sound no longer patent, Provider aware.
--- NOTE | 2023-04-05 12:50 | PC.NURSE ---
Sepsis protocol established at 1233, Antibiotics will be resumed once access is established.
[2023-04-05 13:25] LABS: Platelet Count 97 X10*3/uL (160-400)
--- NOTE | 2023-04-05 13:41 | PC.NURSE ---
3x lumin placed by dr murillo at 1315 waiting on x ray read
[2023-04-05] MEDS: Albuterol Sulfate (0.083%) 2.5 MG/3 ML VIAL.NEB 10 MG INHALE (14:00)
[2023-04-05] MEDS: Insulin Regular, Human 100 UNIT/ML 3 ML VIAL 10 UNIT IVPUSH (14:44)
[2023-04-05] MEDS: Sodium Bicarbonate 8.4% 50 MEQ/50 ML SYRINGE IVPUSH (14:45)
[2023-04-05] MEDS: Dextrose 50 % 25 GM/50 ML SYRINGE IVPUSH (14:46)
[2023-04-05] MEDS: Azithromycin 500 MG in 0.9 % Sodium Chloride 250 ML 125 MG IV (14:46)
[2023-04-05] MEDS: Calcium Gluconate/NaCl,Iso-Osm 1 GM/50 ML PLAST..BAG IV (14:52)
[2023-04-05] MEDS: Norepinephrine Bitartrate/D5W 8 MG/250 ML PLAST..BAG 5.42 MG IV (15:51)
[2023-04-05 15:58] LABS: Appearance Urine Cloudy; Color Urine Yellow; Glucose Urine UA Negative (Negative); Leukocyte Esterase Urine Negative (Negative); Nitrite Urine Negative (Negative); PH 7.5 (5.0-9.0); Specific Gravity - Urine <= 1.005 (1.005-1.025); UMIC TRIGGER UACC YES; Urine Blood Negative (Negative); Urine Ketones Negative (Negative); Urine Protein 30 (1+) mg/dL (Neg-Trace)
--- NOTE | 2023-04-05 16:02 | PC.NURSE ---
X-ray read at 1458, sepsis protocol resumed.
[2023-04-05 16:03] LABS: Bacteria Urine None Seen (None Seen); Hyaline Casts Urine 0-2 /LPF (0-2); RBC Urine 0-2 /HPF (0-2); Squamous Epithelial Cell Urine 0-2 /HPF (0-2); WBC Urine 0-5 /HPF (0-5)
--- NOTE | 2023-04-05 16:06 | PM.CCHP ---
History of Present Illness Date of Service: 04/05/23 Attending physician on admission: Scarlett Lyn Chief Complaint: altered mental status/ hypotension/ hypothermia 77-year-old female from detention facility on antipsychotic medication and a chronic dialysis patient with a well-functioning left upper extremity fistula and due for dialysis today but otherwise on schedule noted to have altered mental status with hypothermia hypotension and laboratory work shows some worsening of metabolic acidosis with no anion gap as well as hyperkalemia she appears to be dystonic with some form of akathisia but she certainly responds to verbal and tactile stimulation and attendance to read respond bedside echo showing significant concentric left ventricular hypertrophy with globally normal systolic wall motion and hyperdynamic with ejection fraction greater than 70% with mild aortic valvular sclerosis but no stenosis and just trace pericardial effusion and normal right heart structure chest x-ray with slightly elevated left hemidiaphragm which appears chronic but no apparent infiltrate difficult to evaluate abdomen because she is a little resistant to examination but the abdomen was soft positive bowel sounds no organomegaly and no mass significant bilateral lower extremity pitting edema but no cellulitis no skin wound EKG just sinus bradycardia mild nonspecific intraventricular conduction defect laboratory otherwise a demonstrates combination of respiratory and metabolic acidosis bedside echo also revealed a fairly flat inferior vena cava so a relative degree of intravascular volume depletion Review of Systems Review of Systems: Yes Unobtainable due to mental status PMFSH Social History Social History Advance Directives: Yes Advance Directives Information Provided: No Advance Directives on File: No Meds Allergies Allergy/AdvReac Type Severity Reaction Status Date / Time haloperidol [From Haldol] Allergy Unknown Verified 01/28/23 08:43 lithium Allergy Unknown Verified 01/28/23 08:43 Active Medications: Current Medications Famotidine (Famotidine/Pf 20 Mg/2 Ml Vial) 20 mg IVPUSH BID AXEL Heparin Sodium (Porcine) (Heparin Sodium,Porcine 5,000 Unit/Ml Vial) 5,000 unit SUBCUT Q12H AXEL Norepinephrine Bitartrate (Levophed) 8 mg in 250 mls @ 0 mls/hr IV .Q0M AXEL; Protocol Last Admin: 04/05/23 15:51 Dose: 0.05 mcg/kg/min, 5.42 mls/hr Vancomycin HCl 1,000 mg/ (Sodium Chloride) 270 mls @ 270 mls/hr IV ONCE ONE Stop: 04/05/23 16:34 Sodium Chloride (Ns) 1,000 mls @ 100 mls/hr IVCONT .Q10H [facility] Lidocaine HCl (Lidocaine Hcl 1 % Mpf 2 Ml Vial) 0.5 ml SUBCUT [id number] [facility] Pharmacy Consult (Consult Rx Perform Med Rec) 1 each MISCELLANE ONCE PRN PRN Reason: Consult order Pharmacy Consult (Consult Rx Perform Med Rec) 1 each MISCELLANE ONCE PRN PRN Reason: Consult order Home Medications Medication Instructions Recorded Confirmed Last Taken Type acetaminophen 325 mg tablet 650 mg PO Q4H PRN Pain 04/05/23 04/05/23 Unknown History albuterol sulfate 90 mcg/actuation 2 puff inhalation Q6H PRN 04/05/23 04/05/23 Unknown History aerosol inhaler Shortness Of Breath aspirin 81 mg tablet,delayed 81 mg PO DAILY 04/05/23 04/05/23 Unknown History release atorvastatin 40 mg tablet 40 mg PO BEDTIME 04/05/23 04/05/23 Unknown History azelastine 137 mcg (0.1 %) nasal 1 spray intranasal BID 04/05/23 04/05/23 Unknown History spray aerosol cetirizine 10 mg tablet 10 mg PO DAILY 04/05/23 04/05/23 Unknown History docusate sodium 100 mg capsule 100 mg PO DAILY PRN Constipation 04/05/23 04/05/23 Unknown History fluphenazine HCl 2.5 mg tablet 7.5 mg PO DAILY 04/05/23 04/05/23 Unknown History furosemide 80 mg tablet 80 mg PO MOWEFRSA 04/05/23 04/05/23 Unknown History gabapentin 100 mg capsule 100 mg PO BID 04/05/23 04/05/23 Unknown History ipratropium 0.5 mg-albuterol 3 mg 3 ml inhalation Q4H PRN Wheezing 04/05/23 04/05/23 Unknown History (2.5 mg base)/3 mL nebulization soln isosorbide mononitrate 30 mg 30 mg PO DAILY 04/05/23 04/05/23 Unknown History tablet,extended release 24 hr lactulose 10 gram/15 mL oral 30 ml PO DAILY PRN Constipation 04/05/23 04/05/23 Unknown History solution melatonin 3 mg tablet 3 mg PO BEDTIME 04/05/23 04/05/23 Unknown History methimazole 5 mg tablet 5 mg PO DAILY 04/05/23 04/05/23 Unknown History midodrine 10 mg tablet 10 mg PO TID PRN Hypotension 04/05/23 04/05/23 Unknown History multivitamin 1 tab PO DAILY 04/05/23 04/05/23 Unknown History olanzapine 2.5 mg tablet 12.5 mg PO BEDTIME 04/05/23 04/05/23 Unknown History oxycodone-acetaminophen 5 mg-325 1 tab PO Q4H PRN Pain 04/05/23 04/05/23 Unknown History mg tablet pantoprazole 20 mg tablet,delayed 20 mg PO DAILY 04/05/23 04/05/23 Unknown History release sennosides 8.6 mg tablet (senna) 8.6 mg PO DAILY 04/05/23 04/05/23 Unknown History sevelamer HCl 800 mg tablet 2,400 mg PO TIDWM 04/05/23 04/05/23 Unknown History Physical Exam Vital Signs: Vital Signs: Last Vital Signs Temp 96.4 F L 04/05/23 15:05 Pulse 75 04/05/23 15:51 Resp 13 04/05/23 15:05 BP 97/37 L 04/05/23 15:51 Pulse Ox 99 04/05/23 15:05 O2 Del Method Aerosol Mask 04/05/23 15:05 O2 Flow Rate 5 04/05/23 15:05 BMI result Body Mass Index 25.8 lethargic and not making eye contact but does respond to verbal and tactile bilaterally dystonic with some and akathisia cardiovascular by bedside echo with concentric left ventricular hypertrophy and hyperdynamic with flat inferior vena cava implying volume depletion abdomen benign lungs without respiratory effort just mild tachypnea Results Labs 04/05/23 12:21 04/05/23 11:52 Labs: Laboratory Results - last 24 hr 04/05/23 04/05/23 04/05/23 11:52 11:52 11:52 MCV MCH MCHC RDW Plt Count MPV Immature Gran % (Auto) Neut % (Auto) Lymph % (Auto) [place] % (Auto) Eos % (Auto) Baso % (Auto) Lymph # (Auto) [place] # (Auto) Eos # (Auto) Baso # (Auto) Abs Immat Gran (auto) Absolute Neuts (auto) Absolute Nucleated RBC Nucleated RBC % (auto) VBG pH VBG pCO2 VBG pO2 VBG HCO3 VBG O2 Saturation VBG Base Excess Anion Gap 18 Estim Creat Clear Calc 7.1 Estimated GFR 8 Random Glucose 87 Lactic Acid 0.7 Calcium 9.6 D Total Bilirubin 0.4 AST 22 ALT 11 Alkaline Phosphatase 91 Ammonia Total Protein 6.4 L Albumin 3.7 TSH 1.77 Cancelled Urine Color Urine Appearance Urine pH Ur Specific [place] Urine Protein Urine Glucose (UA) Urine Ketones Urine Blood Urine Nitrite Ur Leukocyte Esterase Urine RBC Urine WBC Ur Squamous Epith Cells Urine Bacteria Hyaline Casts 04/05/23 04/05/23 04/05/23 11:52 11:56 12:05 MCV MCH MCHC RDW Plt Count MPV Immature Gran % (Auto) Neut % (Auto) Lymph % (Auto) [place] % (Auto) Eos % (Auto) Baso % (Auto) Lymph # (Auto) [place] # (Auto) Eos # (Auto) Baso # (Auto) Abs Immat Gran (auto) Absolute Neuts (auto) Absolute Nucleated RBC Nucleated RBC % (auto) VBG pH 7.26 L VBG pCO2 56 VBG pO2 149 VBG HCO3 25 VBG O2 Saturation 99.0 VBG Base Excess -1.7 Anion Gap Estim Creat Clear Calc Estimated GFR Random Glucose Lactic Acid Calcium Total Bilirubin AST ALT Alkaline Phosphatase Ammonia 38 Total Protein Albumin TSH Urine Color Yellow Urine Appearance Cloudy Urine pH 7.5 Ur Specific [place] <= 1.005 Urine Protein 30 (1+) H Urine Glucose (UA) Negative Urine Ketones Negative Urine Blood Negative Urine Nitrite Negative Ur Leukocyte Esterase Negative Urine RBC 0-2 Urine WBC 0-5 Ur Squamous Epith Cells 0-2 Urine Bacteria None Seen Hyaline Casts 0-2 04/05/23 12:21 MCV 102.9 H MCH 31.5 MCHC 30.6 L RDW 13.7 Plt Count 97 L D MPV 12.2 Immature Gran % (Auto) 0.2 Neut % (Auto) 72.8 Lymph % (Auto) 16.0 L [place] % (Auto) 9.2 Eos % (Auto) 1.4 Baso % (Auto) 0.4 Lymph # (Auto) 0.8 L [place] # (Auto) 0.5 Eos # (Auto) 0.1 Baso # (Auto) 0.0 Abs Immat Gran (auto) 0.01 Absolute Neuts (auto) 3.7 Absolute Nucleated RBC 0.000 Nucleated RBC % (auto) 0.0 VBG pH VBG pCO2 VBG pO2 VBG HCO3 VBG O2 Saturation VBG Base Excess Anion Gap Estim Creat Clear Calc Estimated GFR Random Glucose Lactic Acid Calcium Total Bilirubin AST ALT Alkaline Phosphatase Ammonia Total Protein Albumin TSH Urine Color Urine Appearance Urine pH Ur Specific [place] Urine Protein Urine Glucose (UA) Urine Ketones Urine Blood Urine Nitrite Ur Leukocyte Esterase Urine RBC Urine WBC Ur Squamous Epith Cells Urine Bacteria Hyaline Casts Imaging Radiologist's Impressions: Impressions Chest X-Ray 04/05/23 11:34 IMPRESSION: 1. Left lower lobe lateral CP angle opacity, question loculated effusion/atelectasis is/infiltrate. 2. Suspected mild CHF Head CT 04/05/23 11:34 IMPRESSION: No acute intracranial findings. Generalized atrophy. Encephalomalacia in the inferior right frontal lobe and adjacent bone defect in the superior right orbit. Appearance is unchanged from January 2023. Post traumatic change should be considered. Infectious or inflammatory or neoplastic process cannot be excluded and clinical correlation recommended. This again could be better evaluated with MR of the orbits. Worsening left maxillary sinus disease. Stable opacification of the right mastoid air cells. Chest X-Ray 04/05/23 13:40 IMPRESSION: Interval placement of a right central line with the tip in the right atrium. Assessment and Plan (1) ESRD (end stage renal disease): Status: Acute (2) SIRS (systemic inflammatory response syndrome): Status: Acute (3) Acute hyperkalemia: Status: Acute (4) Metabolic acidosis: Status: Acute (5) Chronic respiratory acidosis: Status: Acute (6) Hyperthyroidism: Status: Acute (7) Hypertrophic cardiomyopathy: Status: Acute Plan at this point she has a systemic inflammatory response issue which could easily be septic specially given her underlying end-stage renal disease but she has a well-functioning fistula with no cellulitis she seems to be largely bed ridden but no significant skin breakage or cellulitis and chest x-ray certainly does not demonstrate a distinct infiltrate so CT scanning of abdomen and pelvis as well as chest are pending and in addition is on methimazole and a combination of antipsychotic. So it is not impossible that anticholinergic affects of her medication could be in part the issue or this could be a chronic salicylate toxicity and and she is also on several acetaminophen containing med medications so these levels in light of the metabolic acidosis need to be drawn and she needs to have volume replacement right now I think saline but I am almost considering a bicarb drip instead but she will also need pressors and I am going to check more specifically thyroid function levels because she is on methimazole and will culture fully including urine and blood and cover empirically for apparent sources Time Spent With Patient Time: Total time managing care of this patient today _60___ minutes.
[2023-04-05] MEDS: iohexoL 350 MG/ML 100 ML INFUS..BTL IV (16:36)
--- NOTE | 2023-04-05 17:03 | PC.NURSE ---
CT complete, results pending.
[2023-04-05] MEDS: Sodium Bicarbonate 8.4% 100 MEQ in Dextrose 5 % 900 ML IV (17:28)
[2023-04-05] MEDS: vancomycin HCL 1,000 MG in 0.9 % Sodium Chloride 250 ML 270 MG IV (18:40)
[2023-04-05] MEDS: Lidocaine HCl 1 % MPF 2 ML VIAL 0.5 ML SUBCUT (18:47)
--- NOTE | 2023-04-05 19:30 | PC.NURSE ---
Report to Rossana RAMIREZ in ICU.
[2023-04-05 19:37] LABS: Acetaminophen LAB < 17 mcg/mL (<30); Salicylate < 5.0 mg/dL (15-30)
[2023-04-05 19:41] LABS: C Reactive Protein < 0.10 mg/dL (< or = 0.50)
[2023-04-05 19:49] LABS: COVID-19 Test Negative (Negative); IDNOW Serial# 08D9AD1C; IDNOW Serial# BCCEAD1C; Influenza A Negative (Negative); Influenza B2 Negative (Negative)
[2023-04-05 19:52] LABS: Amphetamine Screen Urine Not Detected (Not Detect); Barbiturates, Urine Not Detected (Not Detect); Benzodiazepines Screen Urine Not Detected (Not Detect); Cannabinoid Screen Urine Not Detected (Not Detect); Cocaine Screen Urine Not Detected (Not Detect); Fentanyl, urine Not Detected (Not Detect); Opiate Screen Urine Not Detected (Not Detect); Phencyclidine Screen Urine Not Detected (Not Detect)
[2023-04-05 19:57] LABS: Procalcitonin 0.14 ng/mL
[2023-04-05 20:00] LABS: Cortisol Random 9.2 ug/dL
[2023-04-05 20:01] LABS: Erythrocyte Sedimentation Rate 4 MM/HR (0-20)
[2023-04-05] MEDS: Famotidine/PF 20 MG/2 ML VIAL IVPUSH (23:57)
[2023-04-06] VITALS (19 sets, daily range): BP systolic 114–170; BP diastolic 43–88; PULSE 52–69; RESP 11–22; TEMP 35.6–36.3; O2SAT 92–100; BMI 25.6
[2023-04-06 00:35] LABS: VBG HCO3 29 mmol/L (22-26); VBG pCO2 55 mmHg; VBG pH 7.33 (7.32-7.43); VBG pO2 188 mmHg
[2023-04-06 00:37] LABS: Venous Blood Gas Refer to POC result
[2023-04-06 00:53] LABS: Vancomycin Random 10.8 mcg/mL (15-20)
[2023-04-06 00:57] LABS: Anion Gap 14 (12-20); Blood Urea Nitrogen 19 mg/dL (9-16); Calcium 8.7 mg/dL (8.4-10.2); Carbon Dioxide 23 mmol/L (22-29); Chloride 101 mmol/L (96-108); Creatinine Clr Calc Pharmacy 18.4; Estimated Glomerular Filt Rate 24; Glucose Random 122 mg/dL (60-115); Potassium 3.5 mmol/L (3.3-5.1); Sodium 134 mmol/L (135-145)
[2023-04-06] MEDS: 0.9 % Sodium Chloride 1,000 ML 100 ML IVCONT ×2 (01:18→23:04)
[2023-04-06] MEDS: vancomycin HCL 500 MG in 0.9 % Sodium Chloride 100 ML 110 MG IV (01:39)
--- NOTE | 2023-04-06 04:27 | PM.EVENT ---
Event Note Date of Service: 04/06/23 Event Note: One set of blood cultures reported positive at 16 hours for GPC in clusters. ? Patient presented with systemic inflammatory response and was noted to have altered mental status, hypothermia, hypotension, and worsening metabolic acidosis and was therefore covered empirically with ceftriaxone, azithromycin, and vancomycin.? Source of infection? remains unclear;? she has no significant skin breakage or cellulitis, CXR does not demonstrate a distinct infiltrate,? CT the abdomen and pelvis? revealed no cause for sepsis. Urine culture is pending. The patient is afebrile, WBC, lactic acid, procalcitonin were all normal, however, given her underlying end-stage renal disease, will continue empiric antibiotics and repeat blood cultures and lactate.? Time Spent With Patient Time: Total time managing care of this patient today ____ minutes.
[2023-04-06 05:19] LABS: VBG Base Excess 4.5 mmol/L; VBG HCO3 30 mmol/L (22-26); VBG pCO2 54 mmHg; VBG pH 7.36 (7.32-7.43); VBG pO2 75 mmHg
[2023-04-06 05:20] LABS: MANUAL DIFF FLAG NO
[2023-04-06 05:28] LABS: Venous Blood Gas Refer to POC result
[2023-04-06 05:29] LABS: Basophils Percent Auto 0.3 % (0-2); Eosinophils Absolute Auto 0.1 X10*3/uL (0.0-0.4); Eosinophils Percent Auto 0.7 % (0-4); Hematocrit 32.5 % (37.0-47.0); Imm Gran Abs Auto 0.02 X10*3/uL (0.00-0.03); Imm Gran Pct Auto 0.3 % (0.0-0.4); Lymphocytes Absolute Auto 0.8 X10*3/uL (1.2-4.9); Lymphocytes Percent Auto 10.1 % (20-40); Mean Corpuscular HGB Conc 30.8 g/dl (31.0-35.0); Mean Corpuscular Hemoglobin 31.2 pg (27.0-33.0); Mean Corpuscular Volume 101.2 fL (80.0-98.0); Monocytes Absolute Auto 0.6 X10*3/uL (0.1-1.2); Monocytes Percent Auto 7.7 % (2-11); Neutrophils Absolute Auto 6.2 x10*3/uL (2.0-8.3); Neutrophils Percent Auto 80.9 % (45-73); Platelet Count 102 X10*3/uL (160-400); Red Blood Count 3.21 X10*6/uL (4.20-5.50); Red Cell Distribution Width 13.5 % (11.0-16.0); White Blood Count 7.6 X10*3/uL (4.8-10.8)
[2023-04-06 05:46] LABS: Lactic Acid 1.2 mmol/L (0.5-2.0)
[2023-04-06 05:47] LABS: Vancomycin Random 17.4 mcg/mL (15-20)
[2023-04-06 05:51] LABS: Albumin Level 3.2 g/dL (3.5-5.0); Anion Gap 11 (12-20); Blood Urea Nitrogen 23 mg/dL (9-16); Calcium 8.6 mg/dL (8.4-10.2); Carbon Dioxide 25 mmol/L (22-29); Chloride 101 mmol/L (96-108); Creatinine Clr Calc Pharmacy 15.7; Estimated Glomerular Filt Rate 20; Glucose Random 161 mg/dL (60-115); Magnesium 1.9 mg/dL (1.6-2.6); Phosphorus 3.3 mg/dL (2.7-4.5); Potassium 4.2 mmol/L (3.3-5.1); Sodium 133 mmol/L (135-145)
[2023-04-06] MEDS: Heparin Sodium,Porcine 5,000 UNIT/ML VIAL 5000 UNIT SUBCUT ×2 (06:04→19:07)
--- NOTE | 2023-04-06 07:57 | PM.CCPN ---
Subjective Subjective Date of Service: 04/06/23 Interval History: 77-year-old female from a retirement facility came in with hypotension and altered mental status and hypothermia with background history of end-stage renal disease and a well-functioning left arm fistula and a routine dialysis patient who was due for dialysis today and lab work revealed worsening metabolic acidosis but but no lactate elevation negative for procalcitonin who looked like she had an anticholinergic toxidrome in a she had that dry skin with some rubor she had a flat inferior vena cava with with a hypertrophic cardiomyopathy with and superb systolic reserve and presented with an SIRS syndrome but not really clearly septic and we could not find a source but she was completely cultured and and then a look for alternative diagnoses 1. Of course of which is the combination of 1st and 2nd generation antipsychotic. The the antihistamine and in a part of what I noticed was that she was severely dystonic with marked akathisia and felt very strongly that she would she was was toxic on the medications all of which were stopped including her methimazole and she did not have any clinical hyperthyroidism and after having been given 1 dose of antibiotics we have in all probability of 1 contaminated blood culture growing a Gram-positive coccus today but I do not believe this we should continue vancomycin based on this I truly think it was an anticholinergic issue related to medications most of which I think should be stopped because today she has complete clarity very communicative she even voices that she feels much better and this was simply from stopping these medications and delivering her daily dialysis yesterday Critical Care Time (minutes): 45 Physical Exam Vital Signs: Vital Signs: Last Vital Signs Temp 96.4 F L 04/06/23 07:00 Pulse 57 04/06/23 07:00 Resp 14 04/06/23 07:00 BP 138/62 04/06/23 07:00 Pulse Ox 98 04/06/23 07:00 O2 Del Method Nasal Cannula 04/06/23 07:00 O2 Flow Rate 3 04/06/23 07:00 BMI result Body Mass Index 25.6 vital signs are excellent and patient is awake alert oriented and nonfocal neurologically bedside echo with concentric hypertrophy superb ejection fraction normal LV and RV systolic function no chamber size enlargement no primary valve disease lungs remain clear with no adventitious sounds abdomen soft no organomegaly and she passed a swallow exam well coordinated and tolerating regular diet no evidence of cellulitis Objective Data Labs 04/06/23 05:08 04/06/23 05:08 Labs: Laboratory Results - last 24 hr 04/05/23 04/05/23 04/05/23 11:52 11:52 11:52 WBC RBC Hgb Hct MCV MCH MCHC RDW Plt Count MPV Immature Gran % (Auto) Neut % (Auto) Lymph % (Auto) [place] % (Auto) Eos % (Auto) Baso % (Auto) Lymph # (Auto) [place] # (Auto) Eos # (Auto) Baso # (Auto) Abs Immat Gran (auto) Absolute Neuts (auto) Absolute Nucleated RBC Nucleated RBC % (auto) ESR VBG pH VBG pCO2 VBG pO2 VBG HCO3 VBG O2 Saturation VBG Base Excess Sodium 139 Potassium 6.6 H* D Chloride 107 Carbon Dioxide 21 L Anion Gap 18 BUN 73 H Creatinine 5.12 H* Estim Creat Clear Calc 7.1 Estimated GFR 8 Random Glucose 87 Lactic Acid 0.7 Calcium 9.6 D Phosphorus Magnesium Total Bilirubin 0.4 AST 22 ALT 11 Alkaline Phosphatase 91 Ammonia C-Reactive Protein Total Protein 6.4 L Albumin 3.7 Procalcitonin TSH 1.77 Cancelled Random Cortisol Urine Color Urine Appearance Urine pH Ur Specific [place] Urine Protein Urine Glucose (UA) Urine Ketones Urine Blood Urine Nitrite Ur Leukocyte Esterase Urine RBC Urine WBC Ur Squamous Epith Cells Urine Bacteria Hyaline Casts Random Vancomycin Salicylates Urine Opiates Screen Urine Fentanyl Screen Acetaminophen Ur Barbiturates Screen Ur Phencyclidine Scrn Ur Amphetamines Screen U Benzodiazepines Scrn Urine Cocaine Screen U Marijuana (THC) Screen COVID-19 ([facility]) COVID-19 Clin Com Influenza Type A (TAE) Influenza Type B (TAE) Influenza A & B Note 04/05/23 04/05/23 04/05/23 11:52 11:56 12:05 WBC RBC Hgb Hct MCV MCH MCHC RDW Plt Count MPV Immature Gran % (Auto) Neut % (Auto) Lymph % (Auto) [place] % (Auto) Eos % (Auto) Baso % (Auto) Lymph # (Auto) [place] # (Auto) Eos # (Auto) Baso # (Auto) Abs Immat Gran (auto) Absolute Neuts (auto) Absolute Nucleated RBC Nucleated RBC % (auto) ESR VBG pH 7.26 L VBG pCO2 56 VBG pO2 149 VBG HCO3 25 VBG O2 Saturation 99.0 VBG Base Excess -1.7 Sodium Potassium Chloride Carbon Dioxide Anion Gap BUN Creatinine Estim Creat Clear Calc Estimated GFR Random Glucose Lactic Acid Calcium Phosphorus Magnesium Total Bilirubin AST ALT Alkaline Phosphatase Ammonia 38 C-Reactive Protein Total Protein Albumin Procalcitonin TSH Random Cortisol Urine Color Yellow Urine Appearance Cloudy Urine pH 7.5 Ur Specific [place] <= 1.005 Urine Protein 30 (1+) H Urine Glucose (UA) Negative Urine Ketones Negative Urine Blood Negative Urine Nitrite Negative Ur Leukocyte Esterase Negative Urine RBC 0-2 Urine WBC 0-5 Ur Squamous Epith Cells 0-2 Urine Bacteria None Seen Hyaline Casts 0-2 Random Vancomycin Salicylates Urine Opiates Screen Urine Fentanyl Screen Acetaminophen Ur Barbiturates Screen Ur Phencyclidine Scrn Ur Amphetamines Screen U Benzodiazepines Scrn Urine Cocaine Screen U Marijuana (THC) Screen COVID-19 ([facility]) COVID-19 Clin Com Influenza Type A (TAE) Influenza Type B (TAE) Influenza A & B Note 04/05/23 04/05/23 04/05/23 12:05 12:21 19:10 WBC 5.0 RBC 3.40 L Hgb 10.7 L D Hct 35.0 L D MCV 102.9 H MCH 31.5 MCHC 30.6 L RDW 13.7 Plt Count 97 L D MPV 12.2 Immature Gran % (Auto) 0.2 Neut % (Auto) 72.8 Lymph % (Auto) 16.0 L [place] % (Auto) 9.2 Eos % (Auto) 1.4 Baso % (Auto) 0.4 Lymph # (Auto) 0.8 L [place] # (Auto) 0.5 Eos # (Auto) 0.1 Baso # (Auto) 0.0 Abs Immat Gran (auto) 0.01 Absolute Neuts (auto) 3.7 Absolute Nucleated RBC 0.000 Nucleated RBC % (auto) 0.0 ESR VBG pH VBG pCO2 VBG pO2 VBG HCO3 VBG O2 Saturation VBG Base Excess Sodium Potassium Chloride Carbon Dioxide Anion Gap BUN Creatinine Estim Creat Clear Calc Estimated GFR Random Glucose Lactic Acid Calcium Phosphorus Magnesium Total Bilirubin AST ALT Alkaline Phosphatase Ammonia C-Reactive Protein Total Protein Albumin Procalcitonin TSH Random Cortisol Urine Color Urine Appearance Urine pH Ur Specific [place] Urine Protein Urine Glucose (UA) Urine Ketones Urine Blood Urine Nitrite Ur Leukocyte Esterase Urine RBC Urine WBC Ur Squamous Epith Cells Urine Bacteria Hyaline Casts Random Vancomycin Salicylates Urine Opiates Screen Not Detected Urine Fentanyl Screen Not Detected Acetaminophen Ur Barbiturates Screen Not Detected Ur Phencyclidine Scrn Not Detected Ur Amphetamines Screen Not Detected U Benzodiazepines Scrn Not Detected Urine Cocaine Screen Not Detected U Marijuana (THC) Screen Not Detected COVID-19 ([facility]) COVID-19 Clin Com Influenza Type A (TAE) Negative Influenza Type B (TAE) Negative Influenza A & B Note See Note 04/05/23 04/05/23 04/05/23 19:10 19:10 19:10 WBC RBC Hgb Hct MCV MCH MCHC RDW Plt Count MPV Immature Gran % (Auto) Neut % (Auto) Lymph % (Auto) [place] % (Auto) Eos % (Auto) Baso % (Auto) Lymph # (Auto) [place] # (Auto) Eos # (Auto) Baso # (Auto) Abs Immat Gran (auto) Absolute Neuts (auto) Absolute Nucleated RBC Nucleated RBC % (auto) ESR VBG pH VBG pCO2 VBG pO2 VBG HCO3 VBG O2 Saturation VBG Base Excess Sodium Potassium Chloride Carbon Dioxide Anion Gap BUN Creatinine Estim Creat Clear Calc Estimated GFR Random Glucose Lactic Acid Calcium Phosphorus Magnesium Total Bilirubin AST ALT Alkaline Phosphatase Ammonia C-Reactive Protein < 0.10 Total Protein Albumin Procalcitonin 0.14 TSH 1.70 Random Cortisol Urine Color Urine Appearance Urine pH Ur Specific [place] Urine Protein Urine Glucose (UA) Urine Ketones Urine Blood Urine Nitrite Ur Leukocyte Esterase Urine RBC Urine WBC Ur Squamous Epith Cells Urine Bacteria Hyaline Casts Random Vancomycin Salicylates < 5.0 L Urine Opiates Screen Urine Fentanyl Screen Acetaminophen < 17 Ur Barbiturates Screen Ur Phencyclidine Scrn Ur Amphetamines Screen U Benzodiazepines Scrn Urine Cocaine Screen U Marijuana (THC) Screen COVID-19 ([facility]) Negative COVID-19 Clin Com See Note Influenza Type A (TAE) Influenza Type B (TAE) Influenza A & B Note 04/05/23 04/05/23 04/06/23 19:11 19:11 00:22 WBC RBC Hgb Hct MCV MCH MCHC RDW Plt Count MPV Immature Gran % (Auto) Neut % (Auto) Lymph % (Auto) [place] % (Auto) Eos % (Auto) Baso % (Auto) Lymph # (Auto) [place] # (Auto) Eos # (Auto) Baso # (Auto) Abs Immat Gran (auto) Absolute Neuts (auto) Absolute Nucleated RBC Nucleated RBC % (auto) ESR 4 VBG pH VBG pCO2 VBG pO2 VBG HCO3 VBG O2 Saturation VBG Base Excess Sodium 134 L Potassium 3.5 D Chloride 101 Carbon Dioxide 23 Anion Gap 14 BUN 19 H Creatinine 1.98 H Estim Creat Clear Calc 18.4 Estimated GFR 24 Random Glucose 122 H Lactic Acid Calcium 8.7 D Phosphorus Magnesium Total Bilirubin AST ALT Alkaline Phosphatase Ammonia C-Reactive Protein Total Protein Albumin Procalcitonin TSH Random Cortisol 9.2 Urine Color Urine Appearance Urine pH Ur Specific [place] Urine Protein Urine Glucose (UA) Urine Ketones Urine Blood Urine Nitrite Ur Leukocyte Esterase Urine RBC Urine WBC Ur Squamous Epith Cells Urine Bacteria Hyaline Casts Random Vancomycin Salicylates Urine Opiates Screen Urine Fentanyl Screen Acetaminophen Ur Barbiturates Screen Ur Phencyclidine Scrn Ur Amphetamines Screen U Benzodiazepines Scrn Urine Cocaine Screen U Marijuana (THC) Screen COVID-19 ([facility]) COVID-19 Clin Com Influenza Type A (TAE) Influenza Type B (TAE) Influenza A & B Note 04/06/23 04/06/23 04/06/23 00:22 00:28 05:07 WBC RBC Hgb Hct MCV MCH MCHC RDW Plt Count MPV Immature Gran % (Auto) Neut % (Auto) Lymph % (Auto) [place] % (Auto) Eos % (Auto) Baso % (Auto) Lymph # (Auto) [place] # (Auto) Eos # (Auto) Baso # (Auto) Abs Immat Gran (auto) Absolute Neuts (auto) Absolute Nucleated RBC Nucleated RBC % (auto) ESR VBG pH 7.33 VBG pCO2 55 VBG pO2 188 VBG HCO3 29 H VBG O2 Saturation 100.0 VBG Base Excess 3.0 Sodium Potassium Chloride Carbon Dioxide Anion Gap BUN Creatinine Estim Creat Clear Calc Estimated GFR Random Glucose Lactic Acid 1.2 Calcium Phosphorus Magnesium Total Bilirubin AST ALT Alkaline Phosphatase Ammonia C-Reactive Protein Total Protein Albumin Procalcitonin TSH Random Cortisol Urine Color Urine Appearance Urine pH Ur Specific [place] Urine Protein Urine Glucose (UA) Urine Ketones Urine Blood Urine Nitrite Ur Leukocyte Esterase Urine RBC Urine WBC Ur Squamous Epith Cells Urine Bacteria Hyaline Casts Random Vancomycin 10.8 L Salicylates Urine Opiates Screen Urine Fentanyl Screen Acetaminophen Ur Barbiturates Screen Ur Phencyclidine Scrn Ur Amphetamines Screen U Benzodiazepines Scrn Urine Cocaine Screen U Marijuana (THC) Screen COVID-19 ([facility]) COVID-19 Clin Com Influenza Type A (TAE) Influenza Type B (TAE) Influenza A & B Note 04/06/23 04/06/23 04/06/23 05:08 05:08 05:08 WBC 7.6 RBC 3.21 L Hgb 10.0 L Hct 32.5 L MCV 101.2 H MCH 31.2 MCHC 30.8 L RDW 13.5 Plt Count 102 L MPV 12.0 Immature Gran % (Auto) 0.3 Neut % (Auto) 80.9 H Lymph % (Auto) 10.1 L [place] % (Auto) 7.7 Eos % (Auto) 0.7 Baso % (Auto) 0.3 Lymph # (Auto) 0.8 L [place] # (Auto) 0.6 Eos # (Auto) 0.1 Baso # (Auto) 0.0 Abs Immat Gran (auto) 0.02 Absolute Neuts (auto) 6.2 Absolute Nucleated RBC 0.000 Nucleated RBC % (auto) 0.0 ESR VBG pH VBG pCO2 VBG pO2 VBG HCO3 VBG O2 Saturation VBG Base Excess Sodium 133 L Potassium 4.2 Chloride 101 Carbon Dioxide 25 Anion Gap 11 L BUN 23 H Creatinine 2.31 H Estim Creat Clear Calc 15.7 Estimated GFR 20 Random Glucose 161 H Lactic Acid Calcium 8.6 Phosphorus 3.3 Magnesium 1.9 Total Bilirubin AST ALT Alkaline Phosphatase Ammonia C-Reactive Protein Total Protein Albumin 3.2 L Procalcitonin TSH Random Cortisol Urine Color Urine Appearance Urine pH Ur Specific [place] Urine Protein Urine Glucose (UA) Urine Ketones Urine Blood Urine Nitrite Ur Leukocyte Esterase Urine RBC Urine WBC Ur Squamous Epith Cells Urine Bacteria Hyaline Casts Random Vancomycin 17.4 Salicylates Urine Opiates Screen Urine Fentanyl Screen Acetaminophen Ur Barbiturates Screen Ur Phencyclidine Scrn Ur Amphetamines Screen U Benzodiazepines Scrn Urine Cocaine Screen U Marijuana (THC) Screen COVID-19 ([facility]) COVID-19 Clin Com Influenza Type A (TAE) Influenza Type B (TAE) Influenza A & B Note 04/06/23 05:13 WBC RBC Hgb Hct MCV MCH MCHC RDW Plt Count MPV Immature Gran % (Auto) Neut % (Auto) Lymph % (Auto) [place] % (Auto) Eos % (Auto) Baso % (Auto) Lymph # (Auto) [place] # (Auto) Eos # (Auto) Baso # (Auto) Abs Immat Gran (auto) Absolute Neuts (auto) Absolute Nucleated RBC Nucleated RBC % (auto) ESR VBG pH 7.36 VBG pCO2 54 VBG pO2 75 VBG HCO3 30 H VBG O2 Saturation 97.0 VBG Base Excess 4.5 Sodium Potassium Chloride Carbon Dioxide Anion Gap BUN Creatinine Estim Creat Clear Calc Estimated GFR Random Glucose Lactic Acid Calcium Phosphorus Magnesium Total Bilirubin AST ALT Alkaline Phosphatase Ammonia C-Reactive Protein Total Protein Albumin Procalcitonin TSH Random Cortisol Urine Color Urine Appearance Urine pH Ur Specific [place] Urine Protein Urine Glucose (UA) Urine Ketones Urine Blood Urine Nitrite Ur Leukocyte Esterase Urine RBC Urine WBC Ur Squamous Epith Cells Urine Bacteria Hyaline Casts Random Vancomycin Salicylates Urine Opiates Screen Urine Fentanyl Screen Acetaminophen Ur Barbiturates Screen Ur Phencyclidine Scrn Ur Amphetamines Screen U Benzodiazepines Scrn Urine Cocaine Screen U Marijuana (THC) Screen COVID-19 ([facility]) COVID-19 Clin Com Influenza Type A (TAE) Influenza Type B (TAE) Influenza A & B Note Microbiology Microbiology Results: Microbiology 04/05/23 12:21 Blood - Venous Blood Culture - Preliminary Prelim: GPC Gram Stain only Progress Note: A&P Assessment and plan (1) Hypertrophic cardiomyopathy: Status: Acute (2) Hyperthyroidism: Status: Acute (3) Chronic respiratory acidosis: Status: Acute (4) Metabolic acidosis: Status: Acute (5) Acute hyperkalemia: Status: Acute (6) SIRS (systemic inflammatory response syndrome): Status: Acute (7) Severe sepsis: Status: Acute (8) ESRD (end stage renal disease): Status: Acute (9) Anticholinergic syndrome: Status: Acute Plan for the impression is that she had and 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 And of course methimazole can be restored as needed for control of thyroid function and we ruled out other mimicking syndrome such as salicylate toxicity because she was taking some form on a chronic basis and there was no other toxicologic diagnosis so I think a just a day of observation and then she could be restored to her outpatient dialysis routine Quality Stroke Does the patient have a stroke diagnosis?: No VTE Prior VTE?: No VTE Risk Level:: Medical - moderate - high VTE Device Contraindication: N/A - Device Ordered VTE Drug Contraindication: N/A - Med Ordered
[2023-04-06] MEDS: Famotidine/PF 20 MG/2 ML VIAL IVPUSH ×2 (09:59→19:08)
--- NOTE | 2023-04-06 10:28 | MHC.CM.PN ---
Attempted to meet with patient in regards to discharge planning. Patient currently sleeping. No family present. Attempted to reach patient's sister/HCP, Estella, via telephone at [phone]. Left message requesting return telephone call and explaining IMM would be mailed via certified mail. CM assessment completed using medical record. Patient is a LTC resident of [facility]. Anticipate patient will return via BLS when medically stable. Copy of HCP obtained from [facility]. Patient is on HD at baseline. Continue to monitor for d/c needs.
--- NOTE | 2023-04-06 11:40 | PHA.PROG ---
Admission Date/Time: April 05, 2023 16:00 Indication: BACTEREMIA Weight in k.5 kg Adjusted body weight in Kg: [place] body weight in Kg: Obesity Dosing Indication % IBW:25.6 Serum Creatinine - Last 168 Hours 04/05/23 04/06/23 04/06/23 11:52 00:22 05:08 Creatinine 5.12 H* 1.98 H 2.31 H Estimated CrCl and GFR - Last 168 Hours 04/05/23 04/06/23 04/06/23 11:52 00:22 05:08 Estim Creat Clear Calc 7.1 18.4 15.7 Estimated GFR 8 24 20 Vancomycin Loading Dose: 1000 Current Vancomycin Dosing Regimen: 500 MG Q24 BEING GIVEN ONE TIME DOSES UNTIL CULTURES COME BACK PER DR BURNS Vancomycin Monitoring using AUC goal of 400 - 600 range with trough as surrogate marker: 482 AND 17.1 Date and Time for next Vancomycin Level to be drawn: N/A Pharmacist Comments on Vancomycin Plan: DR BURNS IS AWAITING CULTURES AND WILL REASSES TREATMENT PLAN AT THAT TIME. ONE TIME DOSE OF 500 MG ENTERED FOR 24 HOURS AFTER 0200 DOSE ON 04/06. DR BURNS STATES PT IS DIALYSIS PATIENT. Vancomycin dosing will take advantage of [employer] as a clinical decision support tool that uses Bayesian modeling to calculate individual patient's pharmacokinetic parameters and forecast the patient's drug concentration time course with the target goal AUC 24 range of 400 - 600 mg/L/hr.
--- NOTE | 2023-04-06 13:22 | PM.CNNEP ---
History of Present Illness Reason for Consult Consult date: 04/06/23 Chief Complaint Chief complaint: SIRS- altered mental status/ hypotension History of Present Illness Narrative: ?77-year-old female from intermediate facility on antipsychotic medication on chronic dialysis TTS with a well-functioning left upper extremity fistula presented with altered mental status, hypothermia, hypotension and laboratory work shows some worsening of metabolic acidosis with no anion gap as well as hyperkalemia. she has dystonic with some form of akathisia .chest x-ray with slightly elevated left hemidiaphragm which appears chronic but no apparent infiltrate. EKG just sinus bradycardia mild nonspecific intraventricular conduction defect. She was admitted for further management. Nephrology has been consulted to assist in her clinical care Review of Systems Review of Systems Yes all other systems are reviewed and are negative [facility] Social History Social History Household Members: None Housing: Longterm Do you presently have visiting nurse or other home services: No Unable to assess alcohol history related to: Unable to respond and Unknown Patient Tobacco Use Status: Tobacco use Unknown Use of substances other than those prescribed or required for medical reasons: No Currently Displaying Signs/Symptoms of Drug Intoxication Withdrawal: No Any prior treatment program specific to substance use: No Do you feel safe in your current relationship?: No Current Relationship Advance Directives: Yes Advance Directives Information Provided: No Advance Directives on File: Yes Advance Directives Date on File: 04/06/23 Do you have thoughts of harming others: None Do you have a plan to hurt others: No Plan Recently lost weight without trying: Unsure How much weight loss: Unsure Eating poorly because of decreased appetite: No Nutrition screen score: 4 Nutrition Risks: No Nutritional Risk Patient : No : No Poor oral hygiene: No service: No Meds Allergies Allergy/AdvReac Type Severity Reaction Status Date / Time haloperidol [From Haldol] Allergy Unknown Verified 01/28/23 08:43 lithium Allergy Unknown Verified 01/28/23 08:43 Active Medications: Current Medications Famotidine (Famotidine/Pf 20 Mg/2 Ml Vial) 20 mg IVPUSH BID [facility] Last Admin: 04/06/23 09:59 Dose: 20 mg Heparin Sodium (Porcine) (Heparin Sodium,Porcine 5,000 Unit/Ml Vial) 5,000 unit SUBCUT Q12H [facility] Last Admin: 04/06/23 06:04 Dose: 5,000 unit Sodium Chloride (Ns) 1,000 mls @ 100 mls/hr IVCONT .Q10H [facility] Last Infusion: 04/06/23 11:33 Dose: Infused Vancomycin HCl 500 mg/ Sodium (Chloride) 110 mls @ 110 mls/hr IV ONCE ONE Stop: 04/07/23 02:59 Lidocaine HCl (Lidocaine Hcl 1 % Mpf 2 Ml Vial) 0.5 ml SUBCUT TUTHSA@1645 [facility] Last Admin: 04/05/23 18:47 Dose: 0.5 ml Lidocaine HCl (Lidocaine Hcl 1 % Mpf 2 Ml Vial) 0.5 ml SUBCUT TUTA@1645 [facility] Pharmacy Consult (Consult Rx Perform Med Rec) 1 each MISCELLANE ONCE PRN PRN Reason: Consult order Pharmacy Consult (Consult Rx Vancomycin Dosing) 1 each MISCELLANE DAILY PRN PRN Reason: Consult order Home Medications Medication Instructions Recorded Confirmed Last Taken Type acetaminophen 325 mg tablet 650 mg PO Q4H PRN Pain 04/05/23 04/05/23 Unknown History albuterol sulfate 90 mcg/actuation 2 puff inhalation Q6H PRN 04/05/23 04/05/23 Unknown History aerosol inhaler Shortness Of Breath aspirin 81 mg tablet,delayed 81 mg PO DAILY 04/05/23 04/05/23 Unknown History release atorvastatin 40 mg tablet 40 mg PO BEDTIME 04/05/23 04/05/23 Unknown History azelastine 137 mcg (0.1 %) nasal 1 spray intranasal BID 04/05/23 04/05/23 Unknown History spray aerosol cetirizine 10 mg tablet 10 mg PO DAILY 04/05/23 04/05/23 Unknown History docusate sodium 100 mg capsule 100 mg PO DAILY PRN Constipation 04/05/23 04/05/23 Unknown History fluphenazine HCl 2.5 mg tablet 7.5 mg PO DAILY 04/05/23 04/05/23 Unknown History furosemide 80 mg tablet 80 mg PO MOWEFRSA 04/05/23 04/05/23 Unknown History gabapentin 100 mg capsule 100 mg PO BID 04/05/23 04/05/23 Unknown History ipratropium 0.5 mg-albuterol 3 mg 3 ml inhalation Q4H PRN Wheezing 04/05/23 04/05/23 Unknown History (2.5 mg base)/3 mL nebulization soln isosorbide mononitrate 30 mg 30 mg PO DAILY 04/05/23 04/05/23 Unknown History tablet,extended release 24 hr lactulose 10 gram/15 mL oral 30 ml PO DAILY PRN Constipation 04/05/23 04/05/23 Unknown History solution melatonin 3 mg tablet 3 mg PO BEDTIME 04/05/23 04/05/23 Unknown History methimazole 5 mg tablet 5 mg PO DAILY 04/05/23 04/05/23 Unknown History midodrine 10 mg tablet 10 mg PO TID PRN Hypotension 04/05/23 04/05/23 Unknown History multivitamin 1 tab PO DAILY 04/05/23 04/05/23 Unknown History olanzapine 2.5 mg tablet 12.5 mg PO BEDTIME 04/05/23 04/05/23 Unknown History oxycodone-acetaminophen 5 mg-325 1 tab PO Q4H PRN Pain 04/05/23 04/05/23 Unknown History mg tablet pantoprazole 20 mg tablet,delayed 20 mg PO DAILY 04/05/23 04/05/23 Unknown History release sennosides 8.6 mg tablet (senna) 8.6 mg PO DAILY 04/05/23 04/05/23 Unknown History sevelamer HCl 800 mg tablet 2,400 mg PO TIDWM 04/05/23 04/05/23 Unknown History Physical Exam Vital Signs: Last Vital Signs Temp 96.9 F 04/06/23 10:57 Pulse 55 04/06/23 10:57 Resp 16 04/06/23 10:57 BP 152/67 H 04/06/23 10:57 Pulse Ox 98 04/06/23 10:57 O2 Del Method Nasal Cannula 04/06/23 10:57 O2 Flow Rate 2 04/06/23 10:57 BMI result Body Mass Index 25.6 Const General: no acute distress Orientation/consciousness: patient oriented x3 Neck Neck: Yes supple Resp Auscultation: diminished lung sounds Cardio Rate: regular rate GI Palpation (GI): Soft to palpation Neuro General: patient oriented x3 Results Lab Results 04/06/23 05:08 04/06/23 05:08 Lab results: Chemistry 04/05/23 04/06/23 04/06/23 11:52 00:22 05:08 Sodium 139 134 L 133 L Potassium 6.6 H* D 3.5 D 4.2 Carbon Dioxide 21 L 23 25 BUN 73 H 19 H 23 H Creatinine 5.12 H* 1.98 H 2.31 H Calcium 9.6 D 8.7 D 8.6 Phosphorus 3.3 Hematology 04/05/23 04/06/23 12:21 05:08 WBC 5.0 7.6 Hgb 10.7 L D 10.0 L Plt Count 97 L D 102 L Urinalysis 04/05/23 12:05 Urine Color Yellow Urine Appearance Cloudy Urine pH 7.5 Ur Specific [place] <= 1.005 Urine Protein 30 (1+) H Urine Glucose (UA) Negative Urine Ketones Negative Urine Blood Negative Urine Nitrite Negative Ur Leukocyte Esterase Negative Urine RBC 0-2 Urine WBC 0-5 Ur Squamous Epith Cells 0-2 Hyaline Casts 0-2 Assessment and Plan (1) ESRD on hemodialysis: Status: Acute Plan Usually gets HD on TTS( ordered) Renal Diet; Check Phos If Phos high, hos binders with meals Procrit [id number] Units once a week Shall closely follow up. [facility] pls Procedures Date of Service Date of Service: 04/06/23
[2023-04-07] VITALS (9 sets, daily range): BP systolic 127–188; BP diastolic 65–88; PULSE 62–100; RESP 16–18; TEMP 35.9–36.6; O2SAT 95–98; BMI 25.9
[2023-04-07] MEDS: vancomycin HCL 500 MG in 0.9 % Sodium Chloride 100 ML 110 MG IV (01:55)
[2023-04-07] MEDS: Heparin Sodium,Porcine 5,000 UNIT/ML VIAL 5000 UNIT SUBCUT (05:13)
[2023-04-07 06:46] LABS: Creatinine Clr Calc Pharmacy 10.9; Estimated Glomerular Filt Rate 13
[2023-04-07 07:24] LABS: Vancomycin Random 19.7 mcg/mL (15-20)
[2023-04-07 08:01] LABS: Anion Gap 15 (12-20)
[2023-04-07 08:11] LABS: Alanine Aminotransferase 10 U/L (0-31); Albumin Level 3.1 g/dL (3.5-5.0); Alkaline Phosphatase 85 U/L (39-117); Aspartate Amino Transferase 20 U/L (5-31); Bilirubin Total 0.4 mg/dL (0.0-1.0); Blood Urea Nitrogen 37 mg/dL (9-16); Calcium 8.6 mg/dL (8.4-10.2); Carbon Dioxide 18 mmol/L (22-29); Chloride 106 mmol/L (96-108); Glucose Random 70 mg/dL (60-115); Sodium 134 mmol/L (135-145); Total Protein 5.4 g/dL (6.5-8.0)
[2023-04-07] MEDS: amLODIPine Besylate 10 MG TABLET PO (08:54)
--- NOTE | 2023-04-07 10:27 | PC.NURSE ---
Pt receiving dialysis Tuesday//Tuesday, Pt refusing dialysis today, made aware, Pt states will resume dialysis on Tuesday which is the next scheduled day.
--- NOTE | 2023-04-07 11:54 | P.DS_ITS ---
DS: Providers Provider Date of Service: 04/07/23 Date of admission: 04/05/23 16:00 Date of discharge: 04/07/23 Primary care physician: Barbra Castellanos MD DS: Diagnosis Discharge Diagnosis (1) ESRD on hemodialysis: Status: Acute (2) Anticholinergic syndrome: Status: Acute (3) Hypertrophic cardiomyopathy: Status: Acute (4) Hyperthyroidism: Status: Acute DS: Summary Hospital Course Hospital Course: 77-year-old female from senior living facility on antipsychotic medication and a chronic dialysis patient with a well-functioning left upper extremity fistula and due for dialysis today but otherwise on schedule noted to have altered mental status with hypothermia hypotension and laboratory work shows some worsen ing of metabolic acidosis with no anion gap as well as hyperkalemia. 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 Both fluphenazine and olanzapine were held. Time Spent with Patient Time attestation: Total time managing care of this patient today ____ minutes. Physical Exam Vital Signs: Vital Signs: Last Vital Signs Temp 97.7 F 04/07/23 11:33 Pulse 62 04/07/23 11:33 Resp 16 04/07/23 11:33 BP 134/65 04/07/23 11:33 Pulse Ox 95 04/07/23 11:33 O2 Del Method Nasal Cannula 04/07/23 11:33 O2 Flow Rate 3 04/07/23 11:33 BMI result Body Mass Index 25.9 DS: Data Data Completed and Pending Labs on day of discharge: Laboratory Results - last 24 hr 04/07/23 04/07/23 05:42 06:43 Sodium 134 L Potassium 5.0 Chloride 106 Carbon Dioxide 18 L Anion Gap 15 BUN 37 H Creatinine 3.34 H Estim Creat Clear Calc 10.9 Estimated GFR 13 Random Glucose 70 Calcium 8.6 Total Bilirubin 0.4 AST 20 ALT 10 Alkaline Phosphatase 85 Total Protein 5.4 L Albumin 3.1 L Random Vancomycin 19.7 Preliminary micro results at discharge 04/05/23 12:21 Blood Culture - Preliminary Blood - Venous Coag negative Staphylococcus 04/05/23 12:21 Blood Culture - Preliminary Blood - Venous Coag negative Staphylococcus 04/06/23 05:08 Blood Culture - Preliminary Blood - Venous No growth after 24 hours. 04/05/23 12:05 Urine Culture - Preliminary Urine clean catch - Urine diaz top No growth to date. Discharge Plan Discharge Anticipated Discharge Date/Time: 04/07/23 11:50 Patient Disposition: Xfer [facility] Discharge Diagnosis: Anticholinergic syndrome Referrals: Barbra Castellanos MD [Primary Care Provider] - 1 Week Discharge Medications: New amlodipine 10 mg Tablet 10 mg PO DAILY Qty: 30 0RF Protocol: Hold for SBP< HOLD for SBP < : 90 Continued acetaminophen 325 mg Tablet 650 mg PO Q4H PRN (Reason: Pain) multivitamin Tablet 1 tab PO DAILY atorvastatin 40 mg tablet 40 mg PO BEDTIME sennosides [senna] 8.6 mg Tablet 8.6 mg PO DAILY ipratropium-albuterol 0.5 mg-3 mg(2.5 mg base)/3 mL solution for nebulization 3 ml inhalation Q4H PRN (Reason: Wheezing) cetirizine 10 mg Tablet 10 mg PO DAILY sevelamer HCl 800 mg tablet 2,400 mg PO TIDWM isosorbide mononitrate 30 mg tablet extended release 24 hr 30 mg PO DAILY melatonin 3 mg Tablet 3 mg PO BEDTIME aspirin 81 mg Tablet,Delayed Release (Dr/Ec) 81 mg PO DAILY pantoprazole 20 mg tablet,delayed release (DR/EC) 20 mg PO DAILY oxycodone-acetaminophen 5-325 mg tablet 1 tab PO Q4H PRN (Reason: Pain) furosemide 80 mg tablet 80 mg PO MOWEFRSA methimazole 5 mg tablet 5 mg PO DAILY docusate sodium 100 mg Capsule 100 mg PO DAILY PRN (Reason: Constipation) gabapentin 100 mg capsule 100 mg PO BID azelastine 137 mcg (0.1 %) aerosol,spray 1 spray intranasal BID midodrine 10 mg tablet 10 mg PO TID PRN (Reason: Hypotension) lactulose 10 gram/15 mL solution 30 ml PO DAILY PRN (Reason: Constipation) albuterol sulfate 90 mcg/actuation HFA aerosol inhaler 2 puff inhalation Q6H PRN (Reason: Shortness Of Breath) Discontinued fluphenazine HCl 2.5 mg Tablet 7.5 mg PO DAILY olanzapine 2.5 mg tablet 12.5 mg PO BEDTIME Discharge Orders: Discharge Order (Routine); Ordered 04/07/23 Ordered By: Gonzalo Sanchez Diet: Advance to usual diet Activity on Discharge: As tolerated Stand Alone Forms: Patient Portal Discharge page Care Plan Goals: A fluphenazine/olanzapine have been DC. Can be added back at discretion of the receiving physician if indicated Health Concerns: Resume all pre-hospital medications except above Plan of Treatment: Plan as per receiving team Assessment: See discharge summary
--- NOTE | 2023-04-07 12:10 | PM.PNNEP ---
Subjective Subjective Date of Service: 04/07/23 Interval history: Events noted. All recent data reviewed. Refused HD this AM. Says she will have HD tomorrow Physical Exam Vital Signs: Vital Signs: Last Vital Signs Temp 97.7 F 04/07/23 11:33 Pulse 62 04/07/23 11:33 Resp 16 04/07/23 11:33 BP 134/65 04/07/23 11:33 Pulse Ox 95 04/07/23 11:33 O2 Del Method Nasal Cannula 04/07/23 11:33 O2 Flow Rate 3 04/07/23 11:33 BMI result Body Mass Index 25.9 Const: General: no acute distress Eyes: EOM: EOMs intact bilaterally Neck: Neck: Yes supple Resp: Auscultation: diminished lung sounds Cardio: Rate: regular rate GI: Palpation (GI): Soft to palpation Neuro: General: moves all extremities Objective Data Labs 04/06/23 05:08 04/07/23 05:42 Labs: Laboratory Results - last 24 hr 04/07/23 04/07/23 05:42 06:43 Sodium 134 L Potassium 5.0 Chloride 106 Carbon Dioxide 18 L Anion Gap 15 BUN 37 H Creatinine 3.34 H Estim Creat Clear Calc 10.9 Estimated GFR 13 Random Glucose 70 Calcium 8.6 Total Bilirubin 0.4 AST 20 ALT 10 Alkaline Phosphatase 85 Total Protein 5.4 L Albumin 3.1 L Random Vancomycin 19.7 Microbiology Microbiology Results: Microbiology 04/05/23 12:05 Urine clean catch - Urine diaz top Urine Culture - Final No growth. 04/05/23 12:21 Blood - Venous Blood Culture - Preliminary Coag negative Staphylococcus 04/05/23 12:21 Blood - Venous Blood Culture - Preliminary Coag negative Staphylococcus 04/06/23 05:08 Blood - Venous Blood Culture - Preliminary No growth after 24 hours. Procedures Date of Service Date of Service: 04/07/23 Assessment & Plan Assessment and plan (1) ESRD on hemodialysis: Status: Acute Assessment and Plan: Usually gets HD on TTS( [facility]) Refused HD this AM Willing to come for HD tomorrow Procrit [id number] Units once a week Continue rest of current management ? D/C after HD tomorrow AM Progress Note: Quality Stroke Does the patient have a stroke diagnosis?: No
--- NOTE | 2023-04-07 14:08 | HO.PM.IMPN ---
Subjective Subjective Date of Service: 04/07/23 Interval History: Refuse dialysis this a.m. otherwise no acute issues Review of Systems Denies chest pain Denies shortness of breath Denies nausea vomiting diarrhea Denies fever chills Physical Exam Vital Signs: Vital Signs: Last Vital Signs Temp 97.7 F 04/07/23 11:33 Pulse 62 04/07/23 11:33 Resp 16 04/07/23 11:33 BP 134/65 04/07/23 11:33 Pulse Ox 95 04/07/23 11:33 O2 Del Method Nasal Cannula 04/07/23 11:33 O2 Flow Rate 3 04/07/23 11:33 BMI result Body Mass Index 25.9 Const: Other: Awake alert no acute distress Resp: Other: Clear to auscultation bilaterally no rales rhonchi or wheezes Cardio: Other: No S4; positive S1-S2; no S3 murmurs rubs or gallops GI: Other: Soft nontender nondistended normoactive bowel sounds Extrem: Other: No edema bilaterally Objective Data Active Medications Amlodipine Besylate (Amlodipine Besylate 10 Mg Tablet) 10 mg PO DAILY [facility]; Protocol Last Admin: 04/07/23 08:54 Dose: 10 mg Documented By: ANITA Heparin Sodium (Porcine) (Heparin Sodium,Porcine 5,000 Unit/Ml Vial) 5,000 unit SUBCUT Q12H [facility] Last Admin: 04/07/23 05:13 Dose: 5,000 unit Documented By: TARAH Lidocaine HCl (Lidocaine Hcl 1 % Mpf 2 Ml Vial) 0.5 ml SUBCUT TUTA@1645 [facility] Last Admin: 04/05/23 18:47 Dose: 0.5 ml Documented By: JOSUÉ Lidocaine HCl (Lidocaine Hcl 1 % Mpf 2 Ml Vial) 0.5 ml SUBCUT TUTA@1645 [facility] Olanzapine (Olanzapine 2.5 Mg Tablet) 12.5 mg PO BEDTIME [facility] Pharmacy Consult (Consult Rx Perform Med Rec) 1 each MISCELLANE ONCE PRN PRN Reason: Consult order Pharmacy Consult (Consult Rx Vancomycin Dosing) 1 each MISCELLANE DAILY PRN PRN Reason: Consult order Labs 04/06/23 05:08 04/07/23 05:42 Labs: Laboratory Results - last 24 hr 04/07/23 04/07/23 05:42 06:43 Anion Gap 15 Estim Creat Clear Calc 10.9 Estimated GFR 13 Random Glucose 70 Calcium 8.6 Total Bilirubin 0.4 AST 20 ALT 10 Alkaline Phosphatase 85 Total Protein 5.4 L Albumin 3.1 L Random Vancomycin 19.7 Microbiology Microbiology Results: Microbiology 04/05/23 12:05 Urine Culture - Final Urine clean catch - Urine diaz top No growth. 04/05/23 12:21 Blood Culture - Preliminary Blood - Venous Coag negative Staphylococcus 04/05/23 12:21 Blood Culture - Preliminary Blood - Venous Coag negative Staphylococcus 04/06/23 05:08 Blood Culture - Preliminary Blood - Venous No growth after 24 hours. Assessment and Plan (1) Anticholinergic syndrome: Status: Acute (2) ESRD on hemodialysis: Status: Acute (3) Hyperthyroidism: Status: Acute Assessment and Plan: 77-year-old female presents from [facility] facility with altered mental status hypotension and hypothermia in the backdrop of metabolic acidosis. Was on 2nd and 3rd generation antipsychotics and was thought to be having an anticholinergic syndrome. She was admitted to ICU overnight and dialyze. Morning after dialysis she is appears back to baseline without symptoms. 1. Anticholinergic syndrome -will add back Elizabeth onlanzapine -adjust at receiving SNF 2.ESRD -refuse dialysis this a.m. -discussed with Renal; HD in a.m. probable DC back to SNF 3. Hyperthyroidism -continue methimazole Requires ongoing hospitalization to facilitate dialysis prior to return to SNF Time Spent With Patient Time: Total time managing care of this patient today ____ minutes. Quality Stroke Does the patient have a stroke diagnosis?: No VTE Prior VTE?: No VTE Risk Level:: Medical - moderate - high VTE Device Contraindication: N/A - Device Ordered VTE Drug Contraindication: N/A - Med Ordered
--- NOTE | 2023-04-07 14:28 | MHC.CM.PN ---
PLAN IS FOR PATIENT TO RETURN TO [facility] Tuesday04/08/23. HD PRIOR TO TRANSPORT ARRANGEMENTS. RN WILL BE UPDATED WITH TIME
[2023-04-07] MEDS: OLANZapine 2.5 MG TABLET 12.5 MG PO (19:19)
[2023-04-08 04:44] VITALS: BP 170/83; PULSE 76; RESP 20; TEMP 36.5; O2SAT 94
[2023-04-08 05:09] VITALS: BMI 26.8
--- NOTE | 2023-04-08 05:15 | PC.NURSE ---
Addendum entered by Buffy Abdi RN 04/08/23 06:40: Lab called for a critical Creatinine of 4.25, Dr. Esteves made aware. Original Note: AT 0430, pt woke up fidgety and pulling her O2 tube, confsued and mumbling, unable to get her word out, as compared to first encounter, BP= 170/83, HR 76, rest of vitals are WNL, Dr. Esteves was updated, CT head was ordered, when revisited pt at 0458, she then answered questions appropriately with audible words, Dr. Esteves was made aware, CT was cancelled.
[2023-04-08] MEDS: Heparin Sodium,Porcine 5,000 UNIT/ML VIAL 5000 UNIT SUBCUT (05:31)
[2023-04-08 06:40] LABS: Creatinine Clr Calc Pharmacy 8.7; Estimated Glomerular Filt Rate 10
[2023-04-08 07:31] VITALS: BP 129/77; PULSE 67; RESP 18; TEMP 36.8; O2SAT 97
[2023-04-08] MEDS: amLODIPine Besylate 10 MG TABLET PO (07:57)
[2023-04-08 11:35] VITALS: BP 138/70; PULSE 67; RESP 22; TEMP 36.4; O2SAT 95
--- NOTE | 2023-04-08 12:56 | PM.DS ---
DS: Providers Provider Date of Service: 04/08/23 Date of admission: 04/05/23 16:00 Date of discharge: 04/08/23 Primary care physician: Barbra Castellanos MD DS: Diagnosis Discharge Diagnosis (1) Anticholinergic syndrome: Status: Acute (2) ESRD on hemodialysis: Status: Acute (3) Hyperthyroidism: Status: Acute DS: Summary Hospital Course Hospital Course: 77-year-[facility] from [facility] on [facility]otic medication and a chronic dialysis patient with a well-functioning left upper extremity fistula and due for dialysis today but otherwise on schedule noted to have altered mental status with hypothermia hypotension and laboratory work shows some worsening of metabolic acidosis with no anion gap as well as hyperkalemia. 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 Both fluphenazine and olanzapine were held. She received urgent hemodialysis and the next morning was medically stable to be transferred out of ICU. All symptoms had resolved. The day prior to discharge she refused hemodialysis. Her olanzapinewas restarted without issue. Case discussed with Renal who states she is medically acceptable we did discharge back to the facility and resume dialysis tomorrow as per her regular schedule Time Spent with Patient Time attestation: Total time managing care of this patient today ____ minutes. Discharge coordination time: Greater than 30 minutes Quality: Safe Use of Opioids Does Pt have an Active Cancer Diagnosis on the Problem List?: No Quality: Stroke Does the patient have a stroke diagnosis?: No Physical Exam Vital Signs: Vital Signs: Last Vital Signs Temp 97.6 F 04/08/23 11:35 Pulse 67 04/08/23 11:35 Resp 22 H 04/08/23 11:35 BP 138/70 04/08/23 11:35 Pulse Ox 95 04/08/23 11:35 O2 Del Method Nasal Cannula 04/08/23 11:35 O2 Flow Rate 3 04/08/23 11:35 BMI result Body Mass Index 26.8 Const: Other: Awake alert no acute distress Resp: Other: Clear to auscultation bilaterally no rales rhonchi or wheezes Cardio: Other: No S4; positive S1-S2; no S3 murmurs rubs or gallops GI: Other: Soft nontender nondistended normoactive bowel sounds Extrem: Other: No edema bilaterally DS: Data Data Completed and Pending Labs on day of discharge: Laboratory Results - last 24 hr 04/08/23 05:20 Creatinine 4.25 H* Estim Creat Clear Calc 8.7 Estimated GFR 10 Preliminary micro results at discharge 04/06/23 05:08 Blood Culture - Preliminary Blood - Venous No growth after 48 hours. Discharge Plan Discharge Anticipated Discharge Date/Time: 04/08/23 12:55 Patient Disposition: Xfer [facility] Discharge Diagnosis: Anticholinergic syndrome Referrals: Barbra Castellanos MD [Primary Care Provider] - 1 Week Discharge Medications: New amlodipine 10 mg Tablet 10 mg PO DAILY Qty: 30 0RF Protocol: Hold for SBP< HOLD for SBP < : 90 Continued acetaminophen 325 mg Tablet 650 mg PO Q4H PRN (Reason: Pain) multivitamin Tablet 1 tab PO DAILY atorvastatin 40 mg tablet 40 mg PO BEDTIME sennosides [senna] 8.6 mg Tablet 8.6 mg PO DAILY ipratropium-albuterol 0.5 mg-3 mg(2.5 mg base)/3 mL solution for nebulization 3 ml inhalation Q4H PRN (Reason: Wheezing) cetirizine 10 mg Tablet 10 mg PO DAILY sevelamer HCl 800 mg tablet 2,400 mg PO TIDWM isosorbide mononitrate 30 mg tablet extended release 24 hr 30 mg PO DAILY melatonin 3 mg Tablet 3 mg PO BEDTIME aspirin 81 mg Tablet,Delayed Release (Dr/Ec) 81 mg PO DAILY pantoprazole 20 mg tablet,delayed release (DR/EC) 20 mg PO DAILY oxycodone-acetaminophen 5-325 mg tablet 1 tab PO Q4H PRN (Reason: Pain) furosemide 80 mg tablet 80 mg PO MOWEFRSA methimazole 5 mg tablet 5 mg PO DAILY docusate sodium 100 mg Capsule 100 mg PO DAILY PRN (Reason: Constipation) gabapentin 100 mg capsule 100 mg PO BID azelastine 137 mcg (0.1 %) aerosol,spray 1 spray intranasal BID midodrine 10 mg tablet 10 mg PO TID PRN (Reason: Hypotension) lactulose 10 gram/15 mL solution 30 ml PO DAILY PRN (Reason: Constipation) albuterol sulfate 90 mcg/actuation HFA aerosol inhaler 2 puff inhalation Q6H PRN (Reason: Shortness Of Breath) Discontinued fluphenazine HCl 2.5 mg Tablet 7.5 mg PO DAILY olanzapine 2.5 mg tablet 12.5 mg PO BEDTIME Discharge Orders: Discharge Order (Routine); Ordered 04/07/23 Ordered By: Gonzalo Sanchez Diet: Advance to usual diet Activity on Discharge: As tolerated Stand Alone Forms: Patient Portal Discharge page Care Plan Goals: A fluphenazine/olanzapine have been DC. Can be added back at discretion of the receiving physician if indicated Health Concerns: Resume all pre-hospital medications except above Plan of Treatment: Resume Tuesday dialysis; next HD tomorrow Assessment: See discharge summary
--- NOTE | 2023-04-08 14:07 | PM.PNNEP ---
Subjective Subjective Date of Service: 04/08/23 Interval history: Seen and examiend, events ntoed Physical Exam Vital Signs: Vital Signs: Last Vital Signs Temp 97.6 F 04/08/23 11:35 Pulse 67 04/08/23 11:35 Resp 22 H 04/08/23 11:35 BP 138/70 04/08/23 11:35 Pulse Ox 95 04/08/23 11:35 O2 Del Method Nasal Cannula 04/08/23 11:35 O2 Flow Rate 3 04/08/23 11:35 BMI result Body Mass Index 26.8 Const: General: no acute distress Orientation/consciousness: patient oriented x3 Eyes: EOM: EOMs intact bilaterally Neck: Neck: Yes supple Resp: Auscultation: diminished lung sounds Cardio: Rate: regular rate GI: Palpation (GI): Soft to palpation Neuro: General: patient oriented x3 and moves all extremities Objective Data Labs 04/06/23 05:08 04/08/23 05:20 Labs: Laboratory Results - last 24 hr 04/08/23 05:20 Creatinine 4.25 H* Estim Creat Clear Calc 8.7 Estimated GFR 10 Microbiology Microbiology Results: Microbiology 04/05/23 12:21 Blood - Venous Blood Culture - Final Staphylococcus warneri 04/05/23 12:21 Blood - Venous Blood Culture - Final Staphylococcus warneri 04/06/23 05:08 Blood - Venous Blood Culture - Preliminary No growth after 48 hours. 04/05/23 12:05 Urine clean catch - Urine diaz top Urine Culture - Final No growth. Procedures Date of Service Date of Service: 04/08/23 Assessment & Plan Assessment and plan (1) ESRD on hemodialysis: Status: Acute Assessment and Plan: ESRD: TTS but refused HD yesterday and now agrees to go on Sat Anemai: cont EPO as per protocol MBD of CKD REC: cont HD TTS as she agrees to do on Sat; meds as noted Time Spent With Patient Time: Total time managing care of this patient today ____ minutes. Progress Note: Quality Stroke Does the patient have a stroke diagnosis?: No
--- NOTE | 2023-04-08 14:36 | MHC.CM.PN ---
PLAN IS [facility] TRANSP[facility] TO [facility]. SISTER, SHILO [phone] AWARE (VIA MESSAGE) RN AND UNIT AWARE
[2023-04-08 15:06] VITALS: BP 129/62; PULSE 60; RESP 16; TEMP 36.5; O2SAT 98
--- NOTE | 2023-04-08 15:19 | MHC.CM.PN ---
PER CONVERSATION WITH AND [facility] LIAISON, HD TO RESUME TOMORROW ACCORDING TO PATIENT'S NORMAL SCHEDULE ALL AWARE THAT PATIENT DID NOT RECEIVE HD TODAY
== END 2023-04-08 16:36 | DRG 640 ==
LOC: HO.ED 15:32 → HO.EDOVER 16:34 → HO.ICU 18:45 → HO.S3 04-06 10:28
PROVIDERS: Nurse Practitioner Family; Admitting Provider Internal Medicine Cardiovascular Disease; Emergency Provider Emergency Medicine; PCP Internal Medicine; Visit Provider Hospitalist
DX: E87.20 Acidosis, unspecified (principal); N18.6 End stage renal disease; I42.2 Other hypertrophic cardiomyopathy; J96.12 Chronic respiratory failure with hypercapnia; T44.3X5A Adverse effect of other parasympatholytics [anticholinergics and antimuscarinics] and spasmolytics, initial encounter; Z99.2 Dependence on renal dialysis; E87.5 Hyperkalemia; E05.90 Thyrotoxicosis, unspecified without thyrotoxic crisis or storm; N25.0 Renal osteodystrophy; Z20.822 Contact with and (suspected) exposure to COVID-19; Z79.82 Long term (current) use of aspirin; Z79.899 Other long term (current) drug therapy
CPT/HCPCS: 36415; 70450; 71045; 71260; 74177; 80048; 80053; 80143; 80179; 80202; 80307; 81001; 82040; 82140; 82533; 82565; 82803; 83605; 83735; 84100; 84145; 84443; 85025; 85652; 86140; 87040; 87077; 87086; 87147; 87186; 87205; 87502; 87635; 90999; 93005; 94640; 99285; C1758; J0456; J0613; J0696; J1643; J3370; Q9967